=== PATIENT | female | born 1990 | race Caucasian/White ===

== ENCOUNTER 2023-06-06 10:18 | Outpatient (CLI) | payer BC, SELFPAY | END 2023-06-06 10:19 | disposition home or self-care (01) | PROVIDERS: PCP Family Medicine; Visit Provider Family Medicine | DX: Z00.00 Encounter for general adult medical examination without abnormal findings (principal); R53.83 Other fatigue; F41.9 Anxiety disorder, unspecified; Z13.6 Encounter for screening for cardiovascular disorders | CPT/HCPCS: 80053; 80061; 84443 ==

== ENCOUNTER 2023-08-09 10:30 | Outpatient (CLI) | payer BC, SELFPAY | END 2023-08-09 10:31 | disposition home or self-care (01) | PROVIDERS: PCP Family Medicine; Visit Provider Family Medicine | DX: E78.2 Mixed hyperlipidemia (principal); R79.89 Other specified abnormal findings of blood chemistry | CPT/HCPCS: 80061; 80076 ==

== ENCOUNTER 2024-02-15 16:05 | Outpatient (CLI) | payer BC, SELFPAY ==
[2024-02-15 23:12] LABS: Chlamydia DNA Amplified* NOT DETECTED (No Detected); GC DNA Amplified* NOT DETECTED (No Detected)
== END 2024-02-15 16:06 | disposition home or self-care (01) ==
LOC: LKVREF 16:07
PROVIDERS: PCP Family Medicine; Visit Provider Nurse Practitioner Family
DX: R14.0 Abdominal distension (gaseous) (principal); Z11.3 Encounter for screening for infections with a predominantly sexual mode of transmission
CPT/HCPCS: 87491; 87591

== ENCOUNTER 2024-04-03 13:48 | Outpatient (CLI) | payer BC, SELFPAY | END 2024-04-03 13:49 | disposition home or self-care (01) | LOC: LAB 13:49 | PROVIDERS: PCP Family Medicine; Visit Provider Obstetrics & Gynecology | DX: R10.2 Pelvic and perineal pain (principal) | CPT/HCPCS: 81513; 87086; 87481; 87661 ==

== ENCOUNTER 2024-05-15 09:31 | Outpatient (CLI) | payer BC, SELFPAY ==
--- NOTE | 2024-05-15 09:45 | CRLHL7_ITS ---
For Patients: As a result of the Century Cures Act, medical imaging exams and procedure reports are released immediately into your electronic medical record. You may view this report before your referring provider. If you have questions, please contact your health care provider. INDICATION: First trimester scan, establish dates. COMPARISON: None. TECHNIQUE: Real-time hutchins-scale imaging of the pelvis was performed. FINDINGS: Sonographic imaging demonstrates a single living intrauterine gestation. The embryo demonstrates a regular cardiac rate measuring 171 beats per minute. The embryo`s crown-rump length measurement of 1.9 cm corresponds to a gestational age of 8 weeks 3 days with a sonographic due date of 12/22/2024. There is a normal-appearing yolk sac. Abdominal wall is somewhat prominent. The gestational sac has a normal appearance. There is no evidence of a perigestational hemorrhage. The amount of fluid within the sac appears appropriate for gestational age. The cervix is closed. The myometrium appears normal. Simple anechoic right ovarian cyst measures 1.7 x 1.3 x 1.5 cm. Corpus luteal cyst right ovary also noted. Left ovary not visualized. There are no suspicious fluid collections noted in the cul-de-sac. IMPRESSION: Single living intrauterine with sonographic gestational age 8 weeks 3 days and a sonographic due date of 12/22/2024. Possible contour change of the abdominal wall, recommend short-term follow-up for further evaluation. Dictated by Himanshu Lewis MD @ 05/16/2024 11:23:56 AM (Electronically Signed)
== END 2024-05-15 09:32 | disposition home or self-care (01) ==
LOC: US 09:33
PROVIDERS: PCP Family Medicine; Visit Provider Physician Assistant
DX: Z34.91 Encounter for supervision of normal pregnancy, unspecified, first trimester (principal); Z3A.08 8 weeks gestation of pregnancy
CPT/HCPCS: 76817; 82565; 82570; 84156; 84450; 84460; 84520; 86592; 86703; 86704; 86706; 86762; 86787; 86803; 86850; 86900; 86901; 87086; 87340; 87491; 87591

== ENCOUNTER 2024-05-15 11:20 | Outpatient (CLI) | payer BC, SELFPAY ==
[2024-05-15 17:28] LABS: Chlamydia DNA Amplified* NOT DETECTED (No Detected); GC DNA Amplified* NOT DETECTED (No Detected)
== END 2024-05-15 11:21 | disposition home or self-care (01) ==
PROVIDERS: PCP Family Medicine; Visit Provider Physician Assistant
DX: Z34.91 Encounter for supervision of normal pregnancy, unspecified, first trimester (principal); N89.8 Other specified noninflammatory disorders of vagina; Z3A.09 9 weeks gestation of pregnancy
CPT/HCPCS: 82565; 82570; 84156; 84450; 84460; 84520; 86592; 86703; 86704; 86706; 86762; 86787; 86803; 86850; 86900; 86901; 87086; 87340; 87491; 87591

== ENCOUNTER 2024-06-12 07:10 | Outpatient (CLI) | payer BC, SELFPAY ==
--- NOTE | 2024-06-12 07:15 | CRLHL7_ITS ---
For Patients: As a result of the Century Cures Act, medical imaging exams and procedure reports are released immediately into your electronic medical record. You may view this report before your referring provider. If you have questions, please contact your health care provider. INDICATION: FOLLOW UP ABDOMINAL WALL CONTOUR COMPARISON: 05/15/2024 TECHNIQUE: Real-time hutchins-scale imaging of the pelvis was performed. FINDINGS: Sonographic imaging demonstrates a single living intrauterine gestation. The embryo demonstrates a regular cardiac rate measuring 152 beats per minute. The embryo`s crown-rump length measurement of 6.6 cm corresponds to a gestational age of 12 weeks 6 days with a sonographic due date of 12/19/2024. Abdominal wall is normal. Normal ovaries. IMPRESSION: Normal abdominal wall. Sonographic gestational age 12 weeks 6 days and sonographic due date of 12/19/2024. Dictated by Himanshu Lewis MD @ 06/13/2024 1:30:48 PM (Electronically Signed)
== END 2024-06-12 07:11 | disposition home or self-care (01) ==
LOC: US 07:10
PROVIDERS: PCP Family Medicine; Visit Provider Physician Assistant
DX: O28.3 Abnormal ultrasonic finding on antenatal screening of mother (principal); Z3A.12 12 weeks gestation of pregnancy
CPT/HCPCS: 76816

== ENCOUNTER 2024-06-13 14:00 | Outpatient (CLI) | payer BC, SELFPAY | END 2024-06-13 14:01 | disposition home or self-care (01) | PROVIDERS: PCP Family Medicine; Referring Provider Family Medicine; Visit Provider Physician Assistant | DX: Z34.91 Encounter for supervision of normal pregnancy, unspecified, first trimester (principal); N89.8 Other specified noninflammatory disorders of vagina | CPT/HCPCS: 82570; 84156 ==

== ENCOUNTER 2024-07-22 08:34 | Outpatient (CLI) | payer BC, SELFPAY ==
--- OUTSIDE RECORDS SUMMARY | 2024-07-22 08:35 | XMS_ITS | Clinical Summary ---
Author Organization [facility] Address [address] [place] [address] Care Team Providers Care Student Specialist Name Role Phone Siri Gaines DO Primary Care Provider [phone] Source Comments You are receiving this document as you are listed as the primary care provider,follow-up provider, or the patient has been referred to you for consultation.This is in compliance with the Medicare and[facility] EHR Incentive Program,which states Providers who transition their patient to another setting of careor provider of care or refers their patient to another provider of care shouldprovide summary care record for each transition of care or referral. [facility] Allerg[facility] No known active allergies Medications Medication Sig Dispensed Refills Start Date End Date Status Docusate Sodium (DSS) 100 MG Active cholecalciferol (VITAMIND3) 50 MCG (1999) tablet Daily Active sertraline (ZOLOFT) 100 MG tabletIndications:Gene ralized anxiety disorder (HRC) Take 1 Tablet (100 mg) by mouth daily. 90 Tablet 3 02/24/2022 Active hydrOXYzine HCl (ATARAX) 25 MG tabletIndications:Gene ralized anxiety disorder (HRC) Take 1 Tablet (25 mg) by mouth at bedtime as needed for Anxiety. 90 Tablet 3 02/24/2022 Active spironolactone (ALDACTONE) 100 MG tabletIndications:Acne , unspecified acne type Take 1 Tablet (100 mg) by mouth daily. 90 Tablet 3 06/23/2022 Active SPRINTEC 28 0.25-35 MG-MCG tabletIndications:Enco unter for contraceptive management, unspecified type Take 1 tablet by mouth once daily 90 Tablet 1 02/08/2023 Active Active Problems Problem Noted Date Diagnosed Date Hypersomnolence 06/23/2022 Generalized anxiety disorder 07/29/2014 Resolved Problems Problem Noted Date Diagnosed Date Resolved Date Nexplanon in place 07/31/2014 9 Overview (07/31/2016): Removed and replaced 07/31/16 To be removed by 07/31/16 Lot# [id number] Varicella 07/17/2007 07/29/2014 Overview (06/13/2017): LW Onset: [id number] ; Varicella Zoster Other acne 07/13/2007 07/29/2014 Overview (06/13/2017): Acne Vulgaris Immunizations Name Administration Dates Next Due 4vHPV (Gardasil) 01/29/2008,09/23/2007, 7 9vHPV (Gardasil 9) 01/29/2008,09/21/2007, 007 DTP 10/04/1994, 2,03/31/1991,1990,1990 Fluzone Qiv Multidose Vial 0 .25 (6-35 Mos) 07/28/2021,07/17/2019,07/18/2018,2016 HepA Adult (19+ yrs) 11/23/2010,05/11/2010 HepB Ped/Adol (0-18 yrs) 08/27/2003,04/02/2003,0 01/29/2003 Hib (ActHIB) 01/14/1992, 1,01/28/1991,1990 Influenza IIV4 (Quadrivalent ) 0.5mL ([id number]) 09/06/2016 MCV4 (Menactra) 05/11/2010 MMR 04/02/2003,01/14/1992 Pfizer Monovalent 12+ Purple Top 05/31/2021,04/22 Polio, Unspecified Formulation 4,01/14/1992,01/28/1991,1990 TDAP (ADACEL) 11/23/2010 Td 08/27/2003 Tdap 01/07/2021 Family History Medical History Relation Name Comments Multiple Sclerosis Maternal Grandmother Other[Other] Sister PCOS Relation Name Status Comments Father Alive Mother Alive Brother 1 Alive Brother 2 Alive Maternal Grandmother Alive Sister Alive Social History Tobacco Use Types Packs/Day Years Used Date Smoking Tobacco: Never Smokeless Tobacco: Never Alcohol Use Standard Drinks/Week Comments Yes 2 (1 standard drink = 0.6 oz pur e alcohol) PHQ-2 Answer Date Recorded PHQ-2 Score 0 02/24/2022 Sex and Gender Information Value Date Recorded Sex Assigned at Not on file Gender Identity Not on file Sexual Orientation Not on file Last Filed Vital Signs Vital Sign Reading Time Taken Comments Blood Pressure 122/83 06/23/2022 2:23 PM CDT Pulse 75 06/23/2022 2:23 PM CDT Temperature 36.8 ??C (98.2 ??F) 08/03/2020 2 :31 PM CDT pt reported Respiratory Rate 16 10/01/2009 7:59 AM POLE SHAVER Oxygen Saturation - - Inhaled Oxygen Concentration - - Weight 71.1 kg (156 lb 11.2 oz) 06/23/2022 2:23 PM CDT Height 157.4 cm (5' 1.97) 02/24/2022 7 :29 AM CDT Body Mass Index 28.69 02/24/2022 7:29 AM CDT Plan of Treatment Health Maintenance Due Date Last Done Comments Cervical Cancer Screening 03/31/20222018, 02/17/2016, 12/03/2012, Additional history exists Adult Preventive Visit 02/25/2024 , 05/06/2020, 03/31/2019 COVID-19 Vaccine ( season) 2024 05/31/2021, 05/10/2021 Influenza (#1) 2024 07/28/2021, 06/23, 07/18/2018, Additional history exists DTaP/Tdap/Td (8 - Tdap) 01/07/2031 01/08/20 21, 11/23/2010, 08/27/2003, Additional history exists Zoster/Shingles (1 of 2) 2040 Hib Completed 01/14/1992, 03/22, 01/28/1991, Additional history exists IPV (Polio) Completed 10/04/1994, 12/21, 01/28/1991, Additional history exists HepB Completed 08/27/2003, 03/22, 01/29/2003 HPV Vaccine Completed 01/29/2008, 04/0 06/2008, 09/23/2007, Additional history exists MCV4 Aged Out 05/11/2010 No longer eligi ble based on patient's age to complete this topic HepA Aged Out 11/23/2010, 05/11/2010 No lo nger eligible based on patient's age to complete this topic HIV Screening (Preventive Services) Completed 10/12/2021 (Completed) Hep C Screening (Preventive Services) Completed 06/23/2022 (Completed) Pneumococcal Aged Out No longer eligi ble based on patient's age to complete this topic Procedures Procedure Name Priority Date/Time Associated Diagnosis Comments PAP TEST Routine 03/31/2019 1:05 PM CDT Annual physical exam from Last 3 Months or Most Recently Relevant to Health Maintenance Results * (ABNORMAL) PAP Test (03/31/2019 1:05 PM CDT) Case Report Pap ? Case: [id number] ? Authorizing Provider: ??Siri Gaines, DO ? Collected: ? 03/31/2019 01:05 PM ? [facility] Received: ?03/31/2019 03:26 PM ? First Screen: ?Kinza Rivas, CT ? (ASCP) ? Pathologist: ? Sharon Alejandre MD ? Specimen: ?Pap Test, Routine, Cervix/Endocerv ix ? 04/02/2019 2:13 PM CDT [facility] Pap Specimen Adequacy Satisfactory for evaluation, endocervical/tr ansformation zone component present. 04/02/2019 2:13 PM CDT [facility] Pap Interpretation Atypical squamous cells of undetermined significance (ASC-US).(A) 04/02/2019 2:13 PM CDT [facility] Gross Description The specimen is received in SurePath fixative and properly labeled. 1 Pap-stained SurePath slide is prepared. 04/02/2019 2:13 PM CDT [facility] Pap Disclaimer The Pap test is a screening test designed to aid in the detection of cervical cancer and its precursor lesions. It is not a diagnostic procedure and should not be used as the sole means of detecting cervical cancer. Both false-positive and false-negative reports may occur. 04/02/2019 2:13 PM CDT [facility] Embedded Images 2:13 PM CDT [facility] Other Specimen Type ENTIRE ENDOCERVIX / Unknown 03/31/2019 1:05 PM CDT 03/31/2019 3:26 PM CDT Comment:LMP: No LMP recorded . Siri Gaines DO LAB PATHOLOGY [facility] [address] [place] [address], [facility] from Last 3 Months or Most Recently Relevant to Health Maintenance Care Teams Student Specialist Relationship Specialty Start Date End Date Siri Gaines DO [address] [place], [place] [address] PCP - General 07/27/14
[2024-07-22 12:26] LABS: Bacterial Vaginosis* Negative (Negative); Candida glab/krus NOT DETECTED (No Detected); Candida species NOT DETECTED (No Detected); Trichomonas vaginalis NOT DETECTED (No Detected)
== END 2024-07-22 08:35 | disposition home or self-care (01) ==
LOC: NFLDREF 08:34
PROVIDERS: PCP Family Medicine; Visit Provider Advanced Practice Midwife
DX: N89.8 Other specified noninflammatory disorders of vagina (principal)
CPT/HCPCS: 81513; 87481; 87661

== ENCOUNTER 2024-08-26 05:30 | Outpatient (CLI) | payer BC, SELFPAY ==
--- OUTSIDE RECORDS SUMMARY | 2024-08-28 10:57 | XMS_ITS | Clinical Summary ---
Author Organization [place] Address [address] [place] [address] Care Team Providers Care Master Steam Yacht Name Role Phone Kymberly Mustafa MD Primary Care Provider + Encounters Date Type Department Care Team Description 08/22/2024 10:45 AM CDT Office Visit [facility] [place] [address] [place] [phone] Lloyd Feldman MD Hx of preeclampsia, prior , currently , second trimester (Primary Dx); Suspected anomaly not found 08/22/2024 10:12 AM CDT - 08/22/2024 11:59 PM CDT Hospital Encounter [facility] [address] [place] [address] Lloyd Feldman MD Encounter for follow-up ultrasound of anatomy Discharge Disposition: Home or Self Care 08/22/2024 Travel 08/01/2024 11:45 AM CDT Office Visit [facility] [address] [place] [phone] Jenny Bill MD Encounter for follow-up ultrasound of anatomy (Primary Dx); History of gestational hypertension; History of cholestasis during 08/01/2024 10:58 AM CDT - 08/01/2024 11:59 PM CDT Hospital Encounter [facility] [address] [place] [phone] Jenny Bill MD History of gestational hypertension Discharge Disposition: Home or Self Care 08/01/2024 Travel 07/29/2024 Travel 07/23/2024 PRE VISIT [facility] [place] [address] [facility] [address] [place] [phone] Brittanie Davis RN Ultrasound (L2- Cholestasis in previous ); Consult (History of Cholestasis in previous ) from Last 3 Months Social History Tobacco Use Types Packs/Day Years Used Date Smoking Tobacco: Never Assessed Adolescent Education Answer Date Record ed Getting School Help Needed Not on file 07/14 Estimated Date of Delivery Comme nts Yes 12/15/2024 Based on last me nstrual period of 03/10/2024 Sex and Gender Information Value Date Recorded Sex Assigned at Female 07/29/2024 8:27 AM CDT Legal Sex Female 8:03 AM CDT Gender Identity Female 07/29/2024 8:27 AM CDT Sexual Orientation Choose not to disclose 2023 8:27 AM CDT Last Filed Vital Signs Vital Sign Reading Time Taken Comments Blood Pressure 98/66 08/01/2024 12:22 PM CDT Pulse 64 08/01/2024 12:22 PM CDT Temperature - - Respiratory Rate - - Oxygen Saturation 99% 08/01/2024 12:22 PM CDT Inhaled Oxygen Concentration - - Weight - - Height - - Body Mass Index - - Plan of Treatment Health Maintenance Due Date Last Done Comments ADVANCE CARE PLANNING 1990 ANNUAL REVIEW OF HM ORDERS 1990 HIV SCREENING 2005 HEPATITIS C SCREENING 2008 PAP 03/31/2022 03/31/2019 YEARLY PREVENTIVE VISIT 02/24/2023 02/25/20 22, 05/06/2020, 03/31/2019 PHQ-2 (once per calendar year) 2023 MATERNAL SCREENING DISCUSSION 05/19/2024 COVID-19 Vaccine ( season) 2024 05/31/2021, 05/10/2021 INFLUENZA VACCINE (#1) 2024 3, 07/28/2021, 07/27/2020, Additional history exists OBGCT (OB) 08/25/2024 RSV VACCINE (1 - Risk 1-dose series) 10/20/2024 DTAP/TDAP/TD IMMUNIZATION (8 - Td or Tdap) 01/07/2031 01/07/2021, 11/23/2010, 08/27/2003, Additional history exists HEPATITIS B IMMUNIZATION Completed 003, 04/02/2003, 01/29/2003 HPV IMMUNIZATION Completed 01/29/2008, 12/2006, 09/21/2007, Additional history exists MENINGITIS IMMUNIZATION Aged Out 05/11/2010 No l onger eligible based on patient's age to complete this topic Pneumococcal Vaccine: Pediatrics (0 to 5 Years) and At-Risk Patients (6 to 64 Years) Aged Out No longer eligible based on patient's age to complete this topic RSV MONOCLONAL ANTIBODY Aged Out No l onger eligible based on patient's age to complete this topic Procedures Procedure Name Priority Date/Time Associated Diagnosis Comments [facility] US COMPREHENSIVE SINGLE F/U Routine 08/22/2024 10:43 AM CDT Encounter for follow-up ultrasound of anatomy [facility] US COMPREHENSIVE SINGLE Routine 08/01/2024 12:22 PM CDT History of gestational hypertension from Last 3 Months Results * [facility] US Comprehensive Single F/U (08/22/2024 10:43 AM CDT) Anatomical Region Laterality Modality Ultrasound 08/22/2024 10:1 3 AM CDT Impressions 08/22/2024 2:42 PM CDT IMPRESSION ----- 1) David intrauterine at 22w 4d gestational age. 2) None of the anomalies commonly detected by ultrasound were evident in the anatomic survey described above. 3) Growth parameters and estimated weight were consistent with an appropriate for gestation age pattern of growth. 4) The amniotic fluid volume appeared normal. Narrative 08/22/2024 2:42 PM CDT ?Comp Follow Up ----- Pat. Name: TARUN CORREA ? Study Date: ??08/22/2024 10:13am Pat. NO: ??[id number] ?Referring ??MD: JANUARY ROSELYN Site: ? Java Performance Engineer: Aarti Marinelli RDMS : ??1990 ?Age: ?? 33 ----- INDICATION ----- Reevaluate growth and suboptimal anatomy METHOD ----- Transabdominal ultrasound examination. View: Sufficient ----- David . Number of fetuses: 1 DATING ----- ? Date ?Details ?Gest. age ?TREY LMP ?03/10/2024 ? 23 w + 4 d ? 12/15/2024 Previous U/S ?05/15/2024 ?GA, GA 8 w + 3 d ? 22 w + 4 d ? 12/22/2024 U/S ? 08/22/2024 ? based upon AC, BPD, Femur, HC ?22 w + 6 d ? 12/20/2024 Assigned dating ?based on ultrasound (GA), selected on 08/22/2024 ?22 w + 4 d ? 12/22/2024 GENERAL EVALUATION ----- Cardiac activity present. FHR 146 bpm. movements: present. Presentation: Variable Placenta: Posterior Umbilical cord: 3 vessel cord Amniotic fluid: Amount of AF: normal. MVP 5.5 cm BIOMETRY ----- BPD ? 55.1 ?mm ? 22w 6d ?Hadlock OFD ? 75.2 ?mm ? 23w 0d ?Nicolaides HC ? 207.9 ?mm ? 22w 6d ? Hadlock Cerebellum tr ?23.1 ?mm ? 21w 4d ? Nicolaides AC ? 182.4 ?mm ? 23w 1d ?58% ?Hadlock Femur ?39.2 ?mm ? 22w 4d ? Hadlock Weight Calculation: EFW ?541 ? g ? 57% ?Hadlock EFW (lb,oz) ?1 lb 3 ?oz EFW by ? Hadlock ([id number]) Head / Face / Neck Biometry: Edging Supervisor ?3.5 ? mm CM ? 3.2 ? mm ANATOMY ----- The following structures appear normal: Head / Neck ? Cranium. Head size. Head shape. Lateral ventricles. Midline falx. Cavum septi pellucidi. Cerebellum. Cisterna magna. Thalami. Face ? Lips. Profile. Nose. Heart / Thorax ?4-chamber view. RVOT view. LVOT view. 8-ywemyv-izelfqo view. ? Diaphragm. Abdomen ? Stomach. Kidneys. Bladder. The following structures were documented previously: Spine ?Cervical spine. Thoracic spine. Lumbar spine. Sacral spine. sex: male. MATERNAL STRUCTURES ----- Cervix ?Visualized ? Appearance: Appears Closed ? Approach - Transabdominal: Cervical length 44.3 mm Right Ovary ?Not examined ? Cyst(s) Size 11 mm x 13 mm x 13 mm. Mean 12.3 mm. Vol 0.973 cm? ? ?. Simple cyst Left Ovary ?Not examined RECOMMENDATION ----- We discussed the findings on today's ultrasound with the patient. The anatomy that was suboptimally seen at the prior ultrasound appeared within normal limits today. Recommend further ultrasound studies as additional clinical indications arise. Return to primary provider for continued care. Thank you for the opportunity to participate in the care of this patient. If you have questions regarding today's evaluation or if we can be of further service, please contact the [facility]. anomalies may be present but not detected Procedure Note Lloyd Feldman MD - 08/22/2024 Comp Follow Up ----- Pat. Name: TARUN CORREA Study Date: 08/22/2024 10:13am Pat. NO: [id number] Referring MD: MIMI DEMPSEY Site: Java Performance Engineer: Aarti Marinelli RDMS DOB: 1990 Age: 33 ----- INDICATION ----- Reevaluate growth and suboptimal anatomy METHOD ----- Transabdominal ultrasound examination. View: Sufficient ----- David . Number of fetuses: 1 DATING ----- DateDetailsGest. age TREY LMP w + 4 d 12/15/2024 Previous U/S 05/15/2024 GA, GA8 w + 3 d22 w + 4 d 12/22/2024 U/S 08/22/2024ased upon AC, BPD, Femur, HC22 w + 6 d 12/20/2024 Assigned dating based on ultrasound (), selected on w + 4 d 12/22/2024 GENERAL EVALUATION ----- Cardiac activity present. FHR 146 bpm. movements: present.Presentation: Variable Placenta: Posterior Umbilical cord: 3 vessel cord Amniotic fluid: Amount of AF: normal. MVP 5.5 cm BIOMETRY ----- BPD 55.1mm 22w 6dHadlock OFD 75.2mm 23w 0dNicolaides HC 207.9mm 22w 6dHadlock Cerebellum tr 23.1mm 21w 4dNicolaides AC 182.4mm 23w 1d 58%Hadlock Femur 39.2mm 22w 4dHadlock Weight Calculation: EFW 541g 57%Hadlock EFW (lb,oz) 1 lb 3oz EFW by Juan([id number]) Head / Face / Neck Biometry: Edging Supervisor 3.5mm CM 3.2mm ANATOMY ----- The following structures appear normal: Head / Neck Cranium. Head size. Head shape.Lateral ventricles. Midline falx. Cavum septi pellucidi. Cerebellum.Cisterna magna. Thalami. Face Lips. Profile. Nose. Heart / Thorax 4-chamber view. RVOT view. LVOT view.9-kmckqf-yiuoryf view. Diaphragm. Abdomen Stomach. Kidneys. Bladder. The following structures were documented previously: Spine Cervical spine. Thoracic spine.Lumbar spine. Sacral spine. sex: male. MATERNAL STRUCTURES ----- Cervix Visualized Appearance: Appears Closed Approach - Transabdominal:Cervical length 44.3 mm Right Ovary Not examined Cyst(s) Size 11 mm x 13 mm x 13mm. Mean 12.3 mm. Vol 0.973 cm? ? ?. Simple cyst Left Ovary Not examined RECOMMENDATION ----- We discussed the findings on today's ultrasound with the patient. The anatomy that was suboptimally seen at the prior ultrasoundappeared within normal limits today. Recommend further ultrasound studiesas additional clinical indications arise. Return to primary provider for continued care. Thank you for the opportunity to participate in the care of this patient.If you have questions regarding today's evaluation or if we can be offurther service, please contact the [facility]. anomalies may be present but not detected IMPRESSION ----- 1) David intrauterine at 22w 4d gestational age. 2) None of the anomalies commonly detected by ultrasound were evident inthe anatomic survey described above. 3) Growth parameters and estimated weight were consistent with anappropriate for gestation age pattern of growth. 4) The amniotic fluid volume appeared normal. us Jenny Bill MD Rob [facility] US ORDERABLES Edited Re sult - Final * [facility] US Comprehensive Single (08/01/2024 12:22 PM CDT) Anatomical Region Laterality Modality Ultrasound 08/01/2024 11:0 5 AM CDT Impressions 08/01/2024 4:57 PM CDT IMPRESSION ----- 1. David at 19w 4d gestational age. 2. No anomalies commonly detected by ultrasound were identified in the detailed anatomic survey within the limits of ultrasound, however some views were suboptimal, as described above. 3. Growth parameters and estimated weight were consistent with gestational age predicted by assigned TREY. 4. The amniotic fluid volume appeared normal. 5. On transabdominal imaging the cervix appeared long and closed. Narrative 08/01/2024 4:57 PM CDT ?Comprehensive ----- Pat. Name: TARUN CORREA ? Study Date: ??08/01/2024 11:05am Pat. NO: ??[id number] ?Referring ??MD: MIMI DEMPSEY Site: ? Java Performance Engineer: Paula Redmond RDMS : ??1990 ?Age: ?? 33 ----- INDICATION ----- History of preeclampsia. Declined screening. METHOD ----- Transabdominal ultrasound examination. View: Sufficient ----- David . Number of fetuses: 1 DATING ----- ? Date ?Details ?Gest. age ?TREY LMP ?03/10/2024 ? 20 w + 4 d ? 12/15/2024 Previous U/S ?05/15/2024 ?GA, GA 8 w + 3 d ? 19 w + 4 d ? 12/22/2024 U/S ? 08/01/2024 ? based upon AC, BPD, Femur, HC ? 19 w + 4 d ? 12/22/2024 Assigned dating ?based on ultrasound (GA), selected on 08/01/2024 ?19 w + 4 d ? 12/22/2024 GENERAL EVALUATION ----- Cardiac activity present. FHR 146 bpm. movements: present. Presentation: breech Placenta: No Previa, > 2 cm from internal os, Posterior Umbilical cord: 3 vessel cord Amniotic fluid: Amount of AF: normal. MVP 5.8 cm BIOMETRY ----- BPD ? 46.4 ?mm ? 20w 0d ?Hadlock OFD ? 61.2 ?mm ? 19w 6d ?Nicolaides HC ? 172.4 ?mm ? 19w 6d ? Hadlock Cerebellum tr ?20.7 ?mm ? 19w 5d ? Nicolaides Nuchal fold ?3.9 ? mm AC ? 137.6 ?mm ? 19w 1d ?32% ?Hadlock Femur ?30.3 ?mm ? 19w 3d ? Hadlock Humerus ? 30.5 ? mm ?20w 0d ?Lizette Weight Calculation: EFW ?287 ? g ? 32% ?Hadlock EFW (lb,oz) ?0 lb 10 ? oz EFW by ? Hadlock ([id number]-FL) Head / Face / Neck Biometry: Edging Supervisor ?5.6 ? mm CM ? 4.6 ? mm Nasal bone ? 5.5 ?mm ANATOMY ----- The following structures appear normal: Head / Neck ? Cranium. Head size. Head shape. Lateral ventricles. Choroid plexus. Midline falx. Cavum septi pellucidi. Cerebellum. Cisterna magna. ? Parenchyma. Thalami. Vermis. ? Neck. Nuchal fold. Face ? Lips. Profile. Nose. Maxilla. Mandible. Orbits. Lens. Heart / Thorax ?4-chamber view. RVOT view. LVOT view. 3-vessel view. 4-nndpxe-ztkcmzp view. Situs. Aortic arch view. Bicaval view. Ductal arch view. Superior ? vena cava. Inferior vena cava. Cardiac position. Cardiac size. Cardiac rhythm. ? Right lung. Left lung. Diaphragm. Abdomen ? Abdom. wall. Cord insertion. Kidneys. Bladder. Liver. Bowel. Genitals. Spine ?Cervical spine. Thoracic spine. Lumbar spine. Sacral spine. Extremities / Skeleton ?Arms. Right arm. Right hand. Left arm. Left hand. Legs. Right leg. Right foot. Left leg. Left foot. The following structures could not be adequately visualized: Abdomen ? Stomach. sex: male. MATERNAL STRUCTURES ----- Cervix ?Visualized ? Appearance: Appears Closed ? Approach - Transabdominal: Cervical length 40.5 mm Right Ovary ?Visualized ? Cyst(s) Size 19 mm x 17 mm x 16 mm. Mean 17.3 mm. Vol 2.706 cm? ? ?. paraovarian simple cyst Left Ovary ?Visualized RECOMMENDATION ----- Thank-you for referring your patient for ultrasound assessment. I discussed the findings on today's ultrasound with the patient. I reviewed the limitations of ultrasound both in detecting aneuploidy and structural abnormalities. Ultrasound, when views completed, can routinely detect 80-90% of structural abnormalities. She has not had genetic screening this , genetic screening/testing options were reviewed which she is not interested in today. She was seen for a consultation today given prior obstetric history. Please refer to the consult note for further details. Follow-up is scheduled here in three weeks to reassess anatomy that was suboptimally seen today. Return to primary provider for continued care. If you have questions regarding today's evaluation or if we can be of further service, please contact the [facility]. anomalies may be present but not detected Procedure Note Jenny Bill MD - 08/01/2024 Comprehensive ----- Pat. Name: TARUN CORREA Study Date: 08/01/2024 11:05am Pat. NO: [id number] Referring MD: MIMI DEMPSEY Site: Java Performance Engineer: Paula Redmond RDMS : 1990 Age: 33 ----- INDICATION ----- History of preeclampsia. Declined screening. METHOD ----- Transabdominal ultrasound examination. View: Sufficient ----- David . Number of fetuses: 1 DATING ----- DateDetailsGest. age TREY LMP w + 4 d 12/15/2024 Previous U/S 05/15/2024 GA, GA8 w + 3 d19 w + 4 d 12/22/2024 U/S 08/01/2024ased upon AC, BPD, Femur, HC19 w + 4 d 12/22/2024 Assigned dating based on ultrasound (GA), selected on08/01/2024 19w + 4 d 12/22/2024 GENERAL EVALUATION ----- Cardiac activity present. FHR 146 bpm. movements: present.Presentation: breech Placenta: No Previa, > 2 cm from internal os, Posterior Umbilical cord: 3 vessel cord Amniotic fluid: Amount of AF: normal. MVP 5.8 cm BIOMETRY ----- BPD 46.4mm 20w 0dHadlock OFD 61.2mm 19w 6dNicolaides HC 172.4mm 19w 6dHadlock Cerebellum tr 20.7mm 19w 5dNicolaides Nuchal fold 3.9mm AC 137.6mm 19w 1d 32%Hadlock Femur 30.3mm 19w 3dHadlock Humerus 30.5mm 20w 0dJeanty Weight Calculation: EFW 287g 32%Hadlock EFW (lb,oz) 0 lb 10oz EFW by Hadlock([id number]) Head / Face / Neck Biometry: Edging Supervisor 5.6mm CM 4.6mm Nasal bone 5.5mm ANATOMY ----- The following structures appear normal: Head / Neck Cranium. Head size. Head shape.Lateral ventricles. Choroid plexus. Midline falx. Cavum septi pellucidi.Cerebellum. Cisterna magna. Parenchyma. Thalami. Vermis. Neck. Nuchal fold. Face Lips. Profile. Nose. Maxilla.Mandible. Orbits. Lens. Heart / Thorax 4-chamber view. RVOT view. LVOT view.3-vessel view. 5-gibohw-ndrebxy view. Situs. Aortic arch view. Bicavalview. Ductal arch view. Superior vena cava. Inferior vena cava.Cardiac position. Cardiac size. Cardiac rhythm. Right lung. Left lung.Diaphragm. Abdomen Abdom. wall. Cord insertion. Kidneys.Bladder. Liver. Bowel. Genitals. Spine Cervical spine. Thoracic spine.Lumbar spine. Sacral spine. Extremities / Skeleton Arms. Right arm. Right hand. Left arm.Left hand. Legs. Right leg. Right foot. Left leg. Left foot. The following structures could not be adequately visualized: Abdomen Stomach. sex: male. MATERNAL STRUCTURES ----- Cervix Visualized Appearance: Appears Closed Approach - Transabdominal:Cervical length 40.5 mm Right Ovary Visualized Cyst(s) Size 19 mm x 17 mm x 16mm. Mean 17.3 mm. Vol 2.706 cm? ? ?. paraovarian simple cyst Left Ovary Visualized RECOMMENDATION ----- Thank-you for referring your patient for ultrasound assessment. I discussed the findings on today's ultrasound with the patient. Ireviewed the limitations of ultrasound both in detecting aneuploidy andstructural abnormalities. Ultrasound, when views completed, can routinely detect 80-90% of structuralabnormalities. She has not had genetic screening this , geneticscreening/testing options were reviewed which she is not interested in today. She was seen for a consultation today given prior obstetric history.Please refer to the consult note for further details. Follow-up is scheduled here in three weeks to reassess anatomy that wassuboptimally seen today. Return to primary provider for continued care. If you have questions regarding today's evaluation or if we can be offurther service, please contact the [facility]. anomalies may be present but not detected IMPRESSION ----- 1. David at 19w 4d gestational age. 2. No anomalies commonly detected by ultrasound were identified inthe detailed anatomic survey within the limits of prenatalultrasound, however some views were suboptimal, as described above. 3. Growth parameters and estimated weight were consistent withgestational age predicted by assigned TREY. 4. The amniotic fluid volume appeared normal. 5. On transabdominal imaging the cervix appeared long and closed. us Joelle River MD [facility] ORDERABLES Edited Res ult - Final from Last 3 Months Insurance [facility] Care Teams Master [employer] Relationship Specialty Start Date End Date Kymberly Mustafa MD [facility] & [address] [address] PCP - General Family Medicine 05/22/24
--- OUTSIDE RECORDS SUMMARY | 2024-08-28 10:57 | XMS_ITS | Encounter Summary ---
Author Organization [place] Address [facility] [place] [address] Care Team Providers Care Network Account Manager Name Role Phone Kymberly Mustafa MD Primary Care Provider + Encounter Details Date Type Department Care Team (Latest Contact Info) Description 08/22/2024 Travel Social History Tobacco Use Types Packs/Day Years [...] not to disclose 2023 8:27 AM CDT documented as of this encounter Plan of Treatment Not on file documented as of this encounter Visit Diagnoses Not on filedocumented in this encounter Care Teams Network Account Manager Relationship Specialty Start Date End Date Kymberly Mustafa MD [facility] & [address] [address] PCP - General Family Medicine 05/22/24 documented as of this encounter
--- OUTSIDE RECORDS SUMMARY | 2024-08-28 10:57 | XMS_ITS | Encounter Summary ---
Author Organization [place] Address [address] [place] [address] Care Team Providers Care Big Data Lead Name Role Phone Kymberly Mustafa MD Primary Care Provider + Reason for Visit * Reason Comments Ultrasound RL2-suboptimal anato my Encounter Details Date Type Department Care Team (Late st Contact Info) Description 08/22/2024 10:45 AM CDT Office Visit [facility] [place] [address] [facility] [address] [facility] [address] [place] [address] Lloyd Feldman MD [address] [place] [address] Hx of preeclampsia, prior , currently , second trimester (Primary Dx); Suspected anomaly not found Social History Tobacco Use Types Packs/Day Years [...] AM CDT documented as of this encounter Progress Notes * Lloyd Feldman MD - 08/22/2024 10:45 AM CDT Please see Imaging tab under Chart Review for details of today's visit. Lloyd Feldman documented in this encounter Nursing Notes * Melia Mckinley, RN - 08/22/2024 10:45 AM CDT Patient reports good movement, denies contractions, leaking of fluid, or bleeding. ALLAN NI MD, see their note in Epic. documented in this encounter Plan of Treatment Not on file documented as of this encounter Visit Diagnoses Diagnosis Hx of preeclampsia, prior , currently , second trimester- Primary Suspected anomaly not found documented in this encounter Care Teams Big Data Lead Relationship Specialty Start Date End Date Kymberly Mustafa MD [facility] & [address] [address] PCP - General Family Medicine 05/22/24 documented as of this encounter
--- OUTSIDE RECORDS SUMMARY | 2024-08-28 10:57 | XMS_ITS | Referral Summary ---
Author Organization [facility] Address [address] [place] [address] Care Team Providers Care Clipping Marker Name Role Phone Kymberly Mustafa MD Primary Care Provider + Encounters Date Type Department Care Team Description 08/22/2024 Travel 08/22/2024 10:45 AM CDT Office Visit [facility] [address] [place] [address] Lloyd Feldman MD Hx of preeclampsia, prior , currently , second trimester (Primary Dx); Suspected anomaly not found 08/22/2024 10:12 AM CDT - 08/22/2024 11:59 PM CDT Hospital Encounter [facility] [address] [place] [address] Lloyd Feldman MD Encounter for follow-up ultrasound of anatomy Discharge Disposition: Home or Self Care 08/01/2024 Travel 08/01/2024 10:58 AM CDT - 08/01/2024 11:59 PM CDT Hospital Encounter [facility] Medicine [facility] [address] [place] [address] Jenny Bill MD History of gestational hypertension Discharge Disposition: Home or Self Care 08/01/2024 11:45 AM CDT Office Visit [facility] Medicine [facility] [address] [place] [address] Jenny Bill MD Encounter for follow-up ultrasound of anatomy (Primary Dx); History of gestational hypertension; History of cholestasis during 07/29/2024 Travel 07/23/2024 PRE VISIT [facility] [address] [place] [address] Brittanie Davis RN Ultrasound (L2- Cholestasis in [...] Mass Index - - Plan of Treatment Not on file Procedures Procedure Name Priority Date/Time Associated Diagnosis Comments [facility] US COMPREHENSIVE SINGLE F/U Routine 08/22/2024 10:43 AM CDT Encounter for follow-up ultrasound of anatomy [facility] US COMPREHENSIVE SINGLE Routine 08/01/2024 12:22 PM CDT History of gestational hypertension from Last 3 Months Results * [facility] US Comprehensive Single F/U (08/22/2024 10:43 [...] ? Study Date: ??08/22/2024 10:13am Pat. NO: ??[id number] ?Referring ??MD: MIMI ROSELYN Site: ? City Plant Supervisor: Aarti Marinelli RDMS : ??1990 ?Age: ?? [...] lb 3 ?oz EFW by ? Hadlock ([id number]) Head / Face / Neck Biometry: Outside Dealer Sales Representative ?3.5 ? mm CM ? 3.2 ? mm ANATOMY ----- The following structures appear normal: Head / Neck ? Cranium. Head size. Head shape. Lateral ventricles. Midline falx. Cavum septi pellucidi. Cerebellum. Cisterna magna. Thalami. Face ? Lips. Profile. Nose. Heart / Thorax ?4-chamber view. RVOT view. LVOT view. 9-bfbhmt-vriiewg view. ? Diaphragm. Abdomen ? Stomach. Kidneys. [...] CORREA Study Date: 08/22/2024 10:13am Pat. NO: [id number] Referring MD: MIMI DEMPSEY Site: [place] Plant Supervisor: Aarti Marinelli RDMS : 1990 Age: 33 ----- INDICATION ----- Reevaluate [...] d 12/20/2024 Assigned dating based on ultrasound (GA), selected on w + 4 d 12/22/2024 [...] EFW (lb,oz) 1 lb 3oz EFW by Hadlock([id number]) Head / Face / Neck Biometry: Outside Dealer Sales Representative 3.5mm CM 3.2mm ANATOMY ----- The following structures appear normal: Head / Neck Cranium. Head size. Head shape.Lateral ventricles. Midline falx. Cavum septi pellucidi. Cerebellum.Cisterna magna. Thalami. Face Lips. Profile. Nose. Heart / Thorax 4-chamber view. RVOT view. LVOT view.8-fbtmgn-gptsoba view. Diaphragm. Abdomen Stomach. Kidneys. Bladder. The [...] amniotic fluid volume appeared normal. us Jenny GOVEA [facility] US ORDERABLES Edited Re sult - Final * [facility] Comprehensive Single (08/01/2024 12:22 PM CDT) Anatomical [...] ? Study Date: ??08/01/2024 11:05am Pat. NO: ??[id number] ?Referring ??: MIMI DEMPSEY Site: ? City Plant Supervisor: Paula Redmond RDMS : ??1990 ?Age: ?? [...] lb 10 ? oz EFW by ? [facility] ([id number]) Head / Face / Neck Biometry: Outside Dealer Sales Representative ?5.6 ? mm CM ? 4.6 ? [...] view. RVOT view. LVOT view. 3-vessel view. 0-lypbgc-phymyln view. Situs. Aortic arch view. Bicaval view. [...] CORREA Study Date: 08/01/2024 11:05am Pat. NO: [id number] Referring MD: MIMI DEMPSEY Site: City Plant Supervisor: Paula Redmond RDMS : 1990 Age: 33 [...] EFW (lb,oz) 0 lb 10oz EFW by Hadlock([id number]-FL) Head / Face / Neck Biometry: Outside Dealer Sales Representative 5.6mm CM 4.6mm Nasal bone 5.5mm ANATOMY ----- The following structures appear normal: Head / Neck Cranium. Head size. Head shape.Lateral ventricles. Choroid plexus. Midline falx. Cavum septi pellucidi.Cerebellum. Cisterna magna. Parenchyma. Thalami. Vermis. Neck. Nuchal fold. Face Lips. Profile. Nose. Maxilla.Mandible. Orbits. Lens. Heart / Thorax 4-chamber view. RVOT view. LVOT view.3-vessel view. 1-plyvkw-vosyeov view. Situs. Aortic arch view. Bicavalview. Ductal [...] long and closed. us Joelle River MD [facility] US ORDERABLES Edited Res ult - Final from Last 3 Months Insurance [place] [address] Care Teams Clipping Marker Relationship Specialty Start Date End Date Kymberly Mustafa MD [facility] & [address] [address] PCP - General Family Medicine 05/22/24
--- OUTSIDE RECORDS SUMMARY | 2024-08-28 10:58 | XMS_ITS | Encounter Summary ---
Author Organization [facility] Address [facility] [place] [address] Care Team Providers Care Tool Maker Bench Name Role Phone Kymberly Mustafa MD Primary Care Provider + Encounter Details Date Type Department Care Team (Latest Contact Info) Description 07/29/2024 Travel Social History Tobacco Use Types Packs/Day [...] on filedocumented in this encounter Care Teams Tool Maker Bench Relationship Specialty Start Date End Date Kymberly Mustafa MD [facility] & [address] [id number] PCP - General Family Medicine 05/22/24 documented as of this encounter
--- OUTSIDE RECORDS SUMMARY | 2024-08-28 10:58 | XMS_ITS | Encounter Summary ---
Author Organization [facility] Address [address] [place] [address] Care Team Providers Care Bag Worker Name Role Phone Unavailable Primary Care Provider Unavailabl e Reason for Visit * Appointment Request (Routine) - Closed Specialty Diagnoses / Procedures Referred By Contkatia t Referred To Contact Nephrology and Hypertension Siri Arguello M.D. [address] [place] [address] Phone: tel: fax: Referral ID Status Reason Start Date Expiration Date Visits Re quested Visits Authorized [id number] Closed 06/26/2024 06/26/2025 1 1 Encounter Details Date Type Department Care Team (Latest Contact Info) Description 06/30/2024 8:00 AM CDT External Outreach Division of Nephrology and Hypertension in [place], [place] [address] [place] [address] Darcy Whipple M.D., Ph.D. [address] [place] [address] Proteinuria (Primary Dx) Social History Tobacco Use Types Packs/Day Years Used Date Smoking Tobacco: Never Assessed Dental Answer Date Recorded Dental: Regular Dentist Unknown 06/26/20 24 Comments Unknown Sex and Gender Information Value Date Recorded Sex Assigned at Not on file Legal Sex Female 10:12 AM CDT Gender Identity Not on file Sexual Orientation Not on file documented as of this encounter Progress Notes * Darcy Whipple M.D., Ph.D. - 06/30/2024 8:00 AM CDT Referring Provider: Siri Arguello M.D. SUBJECTIVE CHIEF COMPLAINT/REASON FOR VISIT Proteinuria in . HISTORY OF PRESENT ILLNESS Mrs. Tee is a 33-year-old lady with a prior history of HELLP syndrome at 36 weeks during her first . She is currently on her 2nd . She has a gestational age approximately of 15weeks. She was found to have proteinuria on a screening urinalysis which confirmed a 24-hour urine collection of 450 mg of protein per day. Patient also has a history of cholestasis during ( last ). She has a history of depression and anxiety, on sertraline. Previously on Adderall, but this was stopped due to this . Recently, she was treated for bacterial vaginosis withmetronidazole. She has completed therapy. Her vaginosis symptoms have resolved. She does not check her blood pressure regularly at home. Today in clinic it is borderline low. She has not experienced any dizziness or light-headedness; however, she endorses fiua-nl-[id number] headache associated with visual changes such as aura. These headaches are not very frequent. She has been taking Tylenol for back and hip pain. She also goes to physical therapy for this pain that may be associated with changes in her hips due to . She is taking aspirin 81 mg daily, started at 12weeks. No family history of kidney disease. No family history of preeclampsia or HELLP syndrome. REVIEW OF SYSTEMS All other systems were reviewed and are negative, rest as per HPI. OBJECTIVE Vitals signs reviewed, within normal range PHYSICAL EXAMINATION General: No acute distress, breathing comfortably. Neuro: No focal deficits. Alert and oriented X 4. Skin: Warm. No rashes. Psych: Answers questions appropriately. No signs of anxiety or depression noted. DIAGNOSTICS Labs: I have reviewed available labs in detail with patient. ASSESSMENT / PLAN #1 Proteinuria in #2 Prior history of HELLP syndrome Patient is referred to Nephrology for evaluation of her proteinuria. It is subnephrotic range, around 450 mg. Unclear cause at this time. We will continue to monitor her proteinuria with a 24-hour urine collection to be done in 2 months from now. Urinalysis did not show hematuria. She has been treated for bacterial vaginosis. Prior urinalysis showed presence of yeast in clue cells. Her symptoms have resolved at this time. Elevated proteinuria could have been related to the presence of bacterialvaginosis. We will continue to monitor for now. I have recommended patient to start checking blood pressure at home, at least every week to every 2 weeks starting at week 20 of gestational age. Return visit in 2 months. All questions were answered. Idalia Núñez M.D., Ph.D. CT CT Job ID: [id number] documented in this encounter Plan of Treatment Not on file documented as of this encounter Visit Diagnoses Diagnosis Proteinuria- Primary documented in this encounter
--- OUTSIDE RECORDS SUMMARY | 2024-08-28 10:58 | XMS_ITS | Encounter Summary ---
Author Organization [facility] Address [address] [place] [address] Care Team Providers Care Manager Eligibility Name Role Phone Kymberly Mustafa MD Primary Care Provider + Reason for Referral * Diagnostic Imaging Ultrasound (Routine) - Pending Review Specialty Diagnoses / Procedures Referred By Huiac t Referred To Contact Radiology. Diagnoses Encounter for follow-up ultrasound of anatomy Procedures [facility] US Comprehensive Single F/U Jenny Bill MD [address] [place] [id number] Phone: tel: fax: Referral ID Status Reason Start Date Expiration Date V isits Requested Visits Authorized [id number] Pending Review 08/01/2024 08/01/2025 1 1 Reason for Visit * Diagnostic Imaging Ultrasound (Routine) - Pending Review Specialty Diagnoses / Procedures Referred By Contkatia t Referred To Contact Radiology. Diagnoses Encounter for follow-up ultrasound of anatomy Procedures [facility] US Comprehensive Single F/U Jenny Bill MD [address] [place] [address] Phone: tel: fax: Referral ID Status Reason Start Date Expiration Date V isits Requested Visits Authorized [id number] Pending Review 08/01/2024 08/01/2025 1 1 Encounter Details Date Type Department Care Team (Latest Contact Info) Description 08/22/2024 10:12 AM CDT - 08/22/2024 11:59 PM CDT Hospital Encounter [facility] [address] [place] [address] Lloyd Feldman MD [address] [facility] [address] [place] [address] Encounter for follow-up ultrasound of anatomy Discharge Disposition: Home or Self Care Social History Tobacco Use Types Packs/Day Years [...] on file documented as of this encounter Procedures Procedure Name Priority Date/Time Associated Diagnosis Comments [facility] US COMPREHENSIVE SINGLE F/U Routine 08/22/2024 10:43 AM CDT Encounter for follow-up ultrasound of anatomy documented in this encounter Results * [facility] US Comprehensive Single F/U (08/22/2024 10:43 [...] ? Study Date: ??08/22/2024 10:13am Pat. NO: ??[id number] ?Referring ??MD: MIMI ROSELYN Site: ? Meatman: Aarti Marinelli RDMS : ??1990 ?Age: ?? [...] lb 3 ?oz EFW by ? Hadlock ([id number]) Head / Face / Neck Biometry: Public Accountant ?3.5 ? mm CM ? 3.2 ? mm ANATOMY ----- The following structures appear normal: Head / Neck ? Cranium. Head size. Head shape. Lateral ventricles. Midline falx. Cavum septi pellucidi. Cerebellum. Cisterna magna. Thalami. Face ? Lips. Profile. Nose. Heart / Thorax ?4-chamber view. RVOT view. LVOT view. 2-omtfdu-eygsipt view. ? Diaphragm. Abdomen ? Stomach. Kidneys. [...] CORREA Study Date: 08/22/2024 10:13am Pat. NO: [id number] Referring MD: MIMI DEMPSEY Site: Meatman: Aarti MarinelliSEVERO : 1990 Age: 33 ----- INDICATION ----- [...] EFW (lb,oz) 1 lb 3oz EFW by Juan([id number]) Head / Face / Neck Biometry: Public Accountant 3.5mm CM 3.2mm ANATOMY ----- The following structures appear normal: Head / Neck Cranium. Head size. Head shape.Lateral ventricles. Midline falx. Cavum septi pellucidi. Cerebellum.Cisterna magna. Thalami. Face Lips. Profile. Nose. Heart / Thorax 4-chamber view. RVOT view. LVOT view.3-srdaeu-ieufbou view. Diaphragm. Abdomen Stomach. Kidneys. Bladder. The [...] volume appeared normal. us Jenny Bill MD [facility] US ORDERABLES Edited Re rai - Final documented in this encounter Visit Diagnoses Diagnosis Encounter for follow-up ultrasound of anatomy documented in this encounter Care Teams Manager Eligibility Relationship Specialty Start Date End Date Kymberly Mustafa MD [facility] & [place] [id number] PCP - General Family Medicine 05/22/24 documented as of this encounter
--- OUTSIDE RECORDS SUMMARY | 2024-08-28 10:58 | XMS_ITS | Referral Summary ---
Author Organization [facility] Address [address] [place] [address] Care Team Providers Care Pelt Salter Name Role Phone Unavailable Primary Care Provider Unavailabl e Source Comments Patient records contain information from all sites at [facility]. For routine questions regarding patient records, call [phone] during business hours, M-F 8:00 AM - 5:00 PM Central Time. Record requests for emergency care only can be directed to [phone] at any time.[facility] Encounters Date Type Department Care Team Description 06/30/2024 8:00 AM CDT External Outreach Division of Nephrology and Hypertension in [place], [place] [address] [place] [phone] Darcy Whipple M.D., Ph.D. Proteinuria (Primary Dx) from Last 3 Months Social History Tobacco Use Types Packs/Day Years Used Date Smoking Tobacco: Never Assessed Dental Answer Date Recorded Dental: Regular Dentist Unknown 06/26/20 24 Comments Unknown Sex and Gender Information Value Date Recorded Sex Assigned at Not on file Legal Sex Female 10:12 AM CDT Gender Identity Not on file Sexual Orientation Not on file Plan of Treatment Not on file [place] [address]
--- OUTSIDE RECORDS SUMMARY | 2024-08-28 10:58 | XMS_ITS | Encounter Summary ---
Author Organization [place] Address [address] [place] [address] Care Team Providers Care Grain Farmworker Name Role Phone Kymberly Mustafa MD Primary Care Provider + Reason for Referral * Diagnostic Imaging Ultrasound (Routine) - Pending Review Specialty Diagnoses / Procedures Referred By Contac t Referred To Contact Radiology. Diagnoses Encounter for follow-up ultrasound of anatomy Procedures [facility] US Comprehensive Single F/U Jenny Bill MD [address] [facility] [address] [place] [address] Phone: tel: fax: Referral ID Status Reason Start Date Expiration Date V isits Requested Visits Authorized [id number] Pending Review 08/01/2024 08/01/2025 1 1 Reason for Visit * Reason Comments Ultrasound L2-hx comp lications-cholestasis and HELLP syndrome Consult [facility] consult-hx pregn ferny complications-cholestasis and HELLP syndrome * Consultation (Routine: Next available opening) - Pending Review Specialty Diagnoses / Procedures Referred By Contac t Referred To Contact Diagnoses History of gestational hypertension Joelle River MD [address] [facility] [address] [place] [address] Phone: tel: fax: Referral ID Status Reason Start Date Expiration Date V isits Requested Visits Authorized [id number] Pending Review 05/22/2024 05/22/2025 1 1 Encounter Details Date Type Department Care Team (Late st Contact Info) Description 08/01/2024 11:45 AM CDT Office Visit [facility] Maternal Medicine Center [place] [address] [place] [address] Jenny Bill MD [address] [facility] [address] [place] [address] Encounter for follow-up ultrasound of anatomy (Primary Dx); History of gestational hypertension; History of cholestasis during Social History Tobacco Use Types Packs/Day Years [...] AM CDT documented as of this encounter Last Filed Vital Signs Vital Sign Reading Time Taken Comments Blood Pressure 98/66 08/01/2024 12:22 PM CDT Pulse 64 08/01/2024 12:22 PM CDT Temperature - - Respiratory Rate - - Oxygen Saturation 99% 08/01/2024 12:22 PM CDT Inhaled Oxygen Concentration - - Weight - - Height - - Body Mass Index - - documented in this encounter Progress Notes * Jenny Bill MD - 08/01/2024 11:45 AM CDT Images from the original note were not included. Maternal Medicine August 01, 2024 Dear Ms. Dempsey, Thank you for referring your patient Ms. Correa for a Maternal- Medicine consultation today.As you know, she is a 33 year old at 19w4d by early ultrasound presenting for MFM consultation given history of cholestasis of . She notes that her was uncomplicated until around 34 weeks. At that time, she began to notice pruritus and was diagnosed with cholestasis of . She had more frequent surveillance. 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 Her blood pressures were normal, however. She delivered a livebornfemale at 37w0d weighing 6 lbs 6 oz. Given this history, she underwent baseline preeclampsia lab testing as well as urine protein creatinine ratio, which was abnormal at 0.88. She then underwent 24 hour urine protein collection, which was also elevated at 455mg. Given this, she was referred to a nep hrologist. They recommended serial 24 hour urine protein testing every trimester. She also has questions regarding history of lichen sclerosus. She was diagnosed with this prior to and was prescribed clobetasol. She was told that there is no vulvovaginal atrophy visualized on exam, however, she continues to notice vulva itching. She has been testing for vulvovaginitis this . She is wondering what else can be done for this. Obstetrical History: OB History Para Term AB Living 2 1 1 0 0 1 SAB IAB Ectopic Multiple Live Births 0 0 0 0 1 # Outcome Date GA Lbr Bruce/2nd Weight Sex Type Anes PTL Lv 2 Current 1 Term 02/25/21 37w0d 2.892 kg (6 lb 6 oz) F EPI MICHAEL Complications: Cholestasis during Medical History: Past Medical History: Diagnosis Date Anxiety and depression History of cholestasis during Lichen sclerosus Surgical History: No past surgical history on file. BP 98/66 (BP Location: Left arm, Patient Position: Sitting, Cuff Size: Adult Regular) Pulse 64 LMP 03/10/2024 SpO2 99% Gen: NAD Assessment & Recommendations: 33 year old at 21w0d presenting given history of cholestasis of and documented HELLP syndrome. 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 History of cholestasis of We reviewed that intrahepatic cholestasis of (ICP) is a hepatic disorder characterized bypruritus and an elevation in serum bile acid levels which most commonly develops in the 2nd/3rd trimester of . The incidence has been estimated to range from 0.3% to 15% in various populations, with most of the estimates ranging from 0.3% to 0.5%. In non patients, cholestasis is most often a sign of an underlying hepatic disease such as biliary tract disease (common) and autoimmune disease (rare). In , cholestasis is most often self-limited and resolves after delivery.History of ICP in a prior confers increased risk of recurrence in subsequent pregnancies.ICP recurs in anyway from 60-70% of patients. Recurrent episodes are variable in severity compared to the index . Unfortunately, at this time, there are no known measures to reduce risk of recurrence. Documented history of HELLP syndrome We discussed that the recurrence risk of preeclampsia is about 25-30%. Initiation of low dose (81mg) aspirin is recommended for risk reduction and should be initiated between 12 and 28 weeks gestation (optimally before 16 weeks) and continued daily until delivery. Tarun is already taking aspirin.In women with a prior history of preeclampsia or an increased risk of developing preeclampsia due to other risk factors (multifetal gestation, renal disease, autoimmune disease, type 1 or type 2 diabetes, and chronic hypertension) low- dose aspirin may reduce the recurrence risk by up to 25%. We would also recommend baseline assessment of preeclampsia labs which were already done. Given diagnosis of subnephrotic range proteinuria, she was referred to nephrology for surveillance. We also reviewedthat preeclampsia can occur/worsen in the period so vigilant monitoring of blood pressures and symptoms in the first few weeks following delivery is also important. History of lichen sclerosus She was diagnosed prior to and had been on daily clobetasol, though this was decreased totwice weekly. She continues to have refractory symptoms. Discussed that, at this point, this is outside of my area of expertise. I recommend she continue to discuss with her primary clinic. Recommendations: Genetic screening - She declined genetic screening. Medications - Continue low dose aspirin for preeclampsia prophylaxis. Laboratory evaluation - s/p baseline preeclampsia labs and urine protein creatinine ratio and 24 urine protein per record Maternal antepartum management - Close monitoring of blood pressures Ultrasound surveillance - Comprehensive anatomy US Timing and mode of delivery - Per usual obstetric indications, though would consider delivery at 39 weeks unless otherwise clinically indicated sooner. At the end of our discussion, Ms. Correa indicated that her questions were answered and she seemed satisfied with our discussion. Thank you for the opportunity to participate in your patient???s care. If I can be of any further assistance, please do not hesitate to contact me. Sincerely, Jenny Bill MD Cabin Equipment Supervisor, BURRING MACHINE OPERATOR Maternal- Medicine I spent a total of 40 minutes during today's office visit with Ms. Correa. I also spent time reviewing the patient's medical record and documenting in her chart. Over 50% of this time was spent counseling the patient and/or coordinating care. Please see her note for specific details; I have made the necessary edits/additions. The patient was also seen for an ultrasound in the Maternal- Medicine Center today. For a detailed report of the ultrasound examination, please see the ultrasound report which can be found underthe imaging tab. documented in this encounter Nursing Notes * Anjali Ansari, RN - 08/01/2024 11:45 AM CDT Patient presents to [facility] for L2/MFM consult at 20w4d due to hx complications-cholestasis and HELLP syndrome. Positive movement. Denies LOF, vaginal bleeding or cramping/contractions. SBAR given to MFM MD, see their note in Epic. documented in this encounter Plan of Treatment Not on file documented as of this encounter Results * [facility] Comprehensive Single F/U (08/22/2024 10:43 AM CDT) [...] ? Study Date: ??08/22/2024 10:13am Pat. NO: ??[id number] ?Referring ??MD: JANUARY ROSELYN Site: ? Pickle Water Pump Operator: Aarti Marinelli RDMS : ??1990 ?Age: ?? [...] ?1 lb 3 ?oz EFW by ? [facility] ([id number]) Head / Face / Neck Biometry: Digester Capper ?3.5 ? mm CM ? 3.2 ? mm ANATOMY ----- The following structures appear normal: Head / Neck ? Cranium. Head size. Head shape. Lateral ventricles. Midline falx. Cavum septi pellucidi. Cerebellum. Cisterna magna. Thalami. Face ? Lips. Profile. Nose. Heart / Thorax ?4-chamber view. RVOT view. LVOT view. 9-fhuhhi-lhwrtem view. ? Diaphragm. Abdomen ? Stomach. Kidneys. [...] CORREA Study Date: 08/22/2024 10:13am Pat. NO: [id number] Referring MD: MIMI DEMPSEY Site: Pickle Water Pump Operator: Aarti Marinelli RDMS : 1990 Age: 33 [...] EFW (lb,oz) 1 lb 3oz EFW by Hadlock([id number]) Head / Face / Neck Biometry: Digester Capper 3.5mm CM 3.2mm ANATOMY ----- The following structures appear normal: Head / Neck Cranium. Head size. Head shape.Lateral ventricles. Midline falx. Cavum septi pellucidi. Cerebellum.Cisterna magna. Thalami. Face Lips. Profile. Nose. Heart / Thorax 4-chamber view. RVOT view. LVOT view.3-vvxfwr-pamcpqo view. Diaphragm. Abdomen Stomach. Kidneys. Bladder. The [...] volume appeared normal. us Jenny Bill MD [facility] US ORDERABLES Edited Re sult - Final documented in this encounter Visit Diagnoses Diagnosis Encounter for follow-up ultrasound of anatomy- Primary History of gestational hypertension History of cholestasis during Encounter for follow-up ultrasound of anatomy documented in this encounter Care Teams Grain Farmworker Relationship Specialty Start Date End Date Kymberly Mustafa MD [facility] [address] [place] [address] PCP - General Family Medicine 05/22/24 documented as of this encounter
--- OUTSIDE RECORDS SUMMARY | 2024-08-28 10:58 | XMS_ITS ---
Author Organization [facility] Address [address] [place] [address] Care Team Providers Care Relief Cook Name Role Phone Unavailable Unavailable Unavailable Surgery Details Not on file Complications Check Surgery Details section. Procedure Estimated Blood Loss Check Surgery Details section. Procedure Findings Check Surgery Details section. Procedure Specimens Taken Check Surgery Details section.
--- OUTSIDE RECORDS SUMMARY | 2024-08-28 10:58 | XMS_ITS | Encounter Summary ---
Author Organization [place] Address [address] [place] [address] Care Team Providers Care Flute Teacher Name Role Phone Kymberly Mustafa MD Primary Care Provider + Reason for Referral * Consultation (Routine: Next available opening) - Pending Review Specialty Diagnoses / Procedures Referred By Contac t Referred To Contact Diagnoses History of gestational hypertension Joelle River MD [address] [place] [address] Phone: tel: fax: Referral ID Status Reason Start Date Expiration Date V isits Requested Visits Authorized [id number] Pending Review 05/22/2024 05/22/2025 1 1 Question Answer Office Visit Type: M Consult Comments Radiologic * Diagnostic Imaging Ultrasound (Routine) - Pending Review Specialty Diagnoses / Procedures Referred By Contac t Referred To Contact Radiology. Diagnoses History of gestational hypertension Procedures [facility] US Comprehensive Single Joelle River MD [address] [address] Phone: tel: fax: Referral ID Status Reason Start Date Expiration Date V isits Requested Visits Authorized [id number] Pending Review 05/22/2024 05/22/2025 1 1 Encounter Details Date Type Department Care Team (Late st Contact Info) Description 05/22/2024 [facility] Maternal Medicine Center [place] [address] [place] [address] Lilia Andrea RN History of gestational hypertension (Primary Dx) Social History Tobacco Use Types Packs/Day Years Used Date Smoking Tobacco: Never Assessed Adolescent Education Answer Date Record ed Getting School Help Needed Not on file 07/14 Comments Unknown Sex and Gender Information Value Date Recorded Sex Assigned at Female 07/29/2024 8:27 AM CDT Legal Sex Female 8:03 AM CDT Gender Identity Female 07/29/2024 8:27 AM CDT Sexual Orientation Choose not to disclose 2023 8:27 AM CDT documented as of this encounter Plan of Treatment Scheduled Referrals Name Type Priority Associated Diagnoses Orde r Schedule [facility] Office Visit - [facility] Consult Referral Routine: Next available opening History of gestational hypertension Expected: 05/22/2024 (Approximate), Expires: 05/22/2025 documented as of this encounter Results * [facility] US Comprehensive Single (08/01/2024 12:22 PM [...] ? Study Date: ??08/01/2024 11:05am Pat. NO: ??[id number] ?Referring ??MD: JANUARY ROSELYN Site: ? Installer Inspector Final: Paula Redmond RDMS : ??1990 ?Age: ?? [...] 10 ? oz EFW by ? Hadlock ([id number]) Head / Face / Neck Biometry: Technical Sales Associate ?5.6 ? mm CM ? 4.6 ? [...] view. RVOT view. LVOT view. 3-vessel view. 9-bmcknj-ouyqngd view. Situs. Aortic arch view. Bicaval view. [...] CORREA Study Date: 08/01/2024 11:05am Pat. NO: [id number] Referring MD: MIMI ROSELYN Site: Installer Inspector Final: Paula Redmond RDMS : 1990 Age: 33 [...] EFW (lb,oz) 0 lb 10oz EFW by Hadlock([id number]) Head / Face / Neck Biometry: Technical Sales Associate 5.6mm CM 4.6mm Nasal bone 5.5mm ANATOMY ----- The following structures appear normal: Head / Neck Cranium. Head size. Head shape.Lateral ventricles. Choroid plexus. Midline falx. Cavum septi pellucidi.Cerebellum. Cisterna magna. Parenchyma. Thalami. Vermis. Neck. Nuchal fold. Face Lips. Profile. Nose. Maxilla.Mandible. Orbits. Lens. Heart / Thorax 4-chamber view. RVOT view. LVOT view.3-vessel view. 4-ceuuzb-gatuxgx view. Situs. Aortic arch view. Bicavalview. Ductal [...] long and closed. us Joelle River MD [facility] US ORDERABLES Edited Res ult - Final documented in this encounter Visit Diagnoses Diagnosis History of gestational hypertension- Primary History of gestational hypertension documented in this encounter Care Teams Flute Teacher Relationship Specialty Start Date End Date Kymberly Mustafa MD [facility] & [address] [address] PCP - General Family Medicine 05/22/24 documented as of this encounter
--- OUTSIDE RECORDS SUMMARY | 2024-08-28 10:58 | XMS_ITS | Clinical Summary ---
Author Organization [facility] Address [address] [place] [address] Care Team Providers Care Parts Consultant Name Role Phone Unavailable Primary Care Provider Unavailabl e Source Comments Patient records contain information from all sites at [facility]. For routine questions regarding patient records, call [phone] during business hours, M-F 8:00 AM - 5:00 PM Central Time. Record requests for emergency care only can be directed to [phone] at any time.[facility] Encounters Date Type Department Care Team Description 06/30/2024 8:00 AM CDT External Outreach Division of Nephrology and Hypertension in [place], [place] [address] [place] [address] Darcy Whipple M.D., Ph.D. Proteinuria (Primary Dx) [...] Orientation Not on file Plan of Treatment Health Maintenance Due Date Last Done Comments HIV Screening 1990 Hepatitis C Screening 1990 Cervical/Vaginal Cancer Screening 03/31/2022 03/31/2019 Depression Screening (Annual PHQ-2) 10/22/2023 COVID-19 Vaccine ( season) 2024 05/31/2021, 05/10/2021 Influenza Vaccine (#1) 2024 3, 07/28/2021, 07/27/2020, Additional history exists DTaP,Tdap,and Td Vaccines (8 - Td or Tdap) 01/07/2031 01/07/2021, 11/23/2010, 10/04/1994, Additional history exists IPV Vaccines Completed 10/04/1994, 12/21, 01/28/1991, Additional history exists Hepatitis B Vaccines Completed 08/27/2003, 04/02/2003, 01/29/2003 HPV Vaccines Completed 01/29/2008, 040 06/2008, 09/23/2007, Additional history exists Pneumococcal vaccine (0-64 years) Aged Out No longer eligible based on patient's age to complete this topic Insurance [address] [place] [phone] [facility] [place] [address]
--- OUTSIDE RECORDS SUMMARY | 2024-08-28 10:58 | XMS_ITS | Encounter Summary ---
Author Organization [place] Address [address] [place] [address] Care Team Providers Care Core Finisher Name Role Phone Kymberly Mustafa MD Primary Care Provider + Encounter Details Date Type Department Care Team (Late st Contact Info) Description 05/15/2024 Medical Correspondence [facility] Info Mgmt [facility] [address] [place] [address] Scan, Non-Provider Social History Tobacco Use Types Packs/Day Years [...] on filedocumented in this encounter Care Teams Core Finisher Relationship Specialty Start Date End Date Kymberly Mustafa MD [facility] & [address] [address] PCP - General Family Medicine 05/22/24 documented as of this encounter
--- OUTSIDE RECORDS SUMMARY | 2024-08-28 10:58 | XMS_ITS | Encounter Summary ---
Author Organization [place] Address [address] [place] [address] Care Team Providers Care Product Test Engineer Name Role Phone Kymberly Mustafa MD Primary Care Provider + Reason for Visit * Reason Comments Ultrasound L2- Cholestasis in p revious Consult History of Cholestas is in previous Encounter Details Date Type Department Care Team (Late st Contact Info) Description 07/23/[address] [facility] Maternal Medicine Center [place] [address] [facility] [address] [place] [address] Brittanie Davis RN Ultrasound (L2- Cholestasis in previous ); Consult (History of Cholestasis in previous ) Social History Tobacco Use Types Packs/Day Years [...] on filedocumented in this encounter Care Teams Product Test Engineer Relationship Specialty Start Date End Date Kymberly Mustafa MD [facility] & [address] [address] PCP - General Family Medicine 05/22/24 documented as of this encounter
--- OUTSIDE RECORDS SUMMARY | 2024-08-28 10:58 | XMS_ITS | Encounter Summary ---
Author Organization [place] Address [facility] [place] [address] Care Team Providers Care Cat Scan Tech Name Role Phone Kymberly Mustafa MD Primary Care Provider + Encounter Details Date Type Department Care Team (Latest Contact Info) Description 08/01/2024 Travel Social History Tobacco Use Types Packs/Day [...] on filedocumented in this encounter Care Teams Cat Scan Tech Relationship Specialty Start Date End Date Kymberly Mustafa MD [facility] & [address] [address] PCP - General Family Medicine 05/22/24 documented as of this encounter
--- OUTSIDE RECORDS SUMMARY | 2024-08-28 10:58 | XMS_ITS | Encounter Summary ---
Author Organization [place] Address [address] [place] [address] Care Team Providers Care Security Agent Name Role Phone Kymberly Mustafa MD Primary Care Provider + Reason for Referral * Diagnostic Imaging Ultrasound (Routine) - Pending Review Specialty Diagnoses / Procedures Referred By Contac t Referred To Contact Radiology. Diagnoses History of gestational hypertension Procedures [facility] US Comprehensive Single Joelle River MD [address] [place] [address] Phone: tel: fax: Referral ID Status Reason Start Date Expiration Date V isits Requested Visits Authorized [id number] Pending Review 05/22/2024 05/22/2025 1 1 Reason for Visit * Diagnostic Imaging Ultrasound (Routine) - Pending Review Specialty Diagnoses / Procedures Referred By Naren starkey Referred To Contact Radiology. Diagnoses History of gestational hypertension Procedures [facility] Single Joelle River MD [address] [address] Phone: tel: fax: Referral ID Status Reason Start Date Expiration Date V isits Requested Visits Authorized [id number] Pending Review 05/22/2024 05/22/2025 1 1 Encounter Details Date Type Department Care Team (Latest Contact Info) Description 08/01/2024 10:58 AM CDT - 08/01/2024 11:59 PM CDT Hospital Encounter [facility] Maternal Medicine [facility] [address] [place] [address] Jenny Bill MD [address] [facility] [address] [place] [address] History of gestational hypertension Discharge Disposition: Home or Self Care Social [...] Procedure Name Priority Date/Time Associated Diagnosis Comments [facility] US COMPREHENSIVE SINGLE Routine 08/01/2024 12:22 PM CDT History of gestational hypertension documented in this encounter Results * [facility] US Comprehensive Single (08/01/2024 12:22 PM [...] ? Study Date: ??08/01/2024 11:05am Pat. NO: ??[id number] ?Referring ??MD: MIMI DEMPSEY Site: ? Lace Winder: Paula Redmond RDMS : ??1990 ?Age: ?? [...] 10 ? oz EFW by ? Hadlock ([id number]) Head / Face / Neck Biometry: Child And Family Therapist ?5.6 ? mm CM ? 4.6 ? [...] view. RVOT view. LVOT view. 3-vessel view. 4-nodhww-wucikvu view. Situs. Aortic arch view. Bicaval view. [...] CORREA Study Date: 08/01/2024 11:05am Pat. NO: [id number] Referring MD: JANUARY ROSELYN Site: Lace Winder: Paula Redmond RDMS : 1990 Age: 33 [...] EFW (lb,oz) 0 lb 10oz EFW by Hadlock([id number]) Head / Face / Neck Biometry: Child And Family Therapist 5.6mm CM 4.6mm Nasal bone 5.5mm ANATOMY ----- The following structures appear normal: Head / Neck Cranium. Head size. Head shape.Lateral ventricles. Choroid plexus. Midline falx. Cavum septi pellucidi.Cerebellum. Cisterna magna. Parenchyma. Thalami. Vermis. Neck. Nuchal fold. Face Lips. Profile. Nose. Maxilla.Mandible. Orbits. Lens. Heart / Thorax 4-chamber view. RVOT view. LVOT view.3-vessel view. 6-ackkwe-urymwod view. Situs. Aortic arch view. Bicavalview. Ductal [...] long and closed. us Joelle River MD [facility] US ORDERABLES Edited Res ult - Final documented in this encounter Visit Diagnoses Diagnosis History of gestational hypertension documented in this encounter Care Teams Security Agent Relationship Specialty Start Date End Date Kymberly Mustafa MD [facility] & [facility] [address] [place] [address] PCP - General Family Medicine 05/22/24 documented as of this encounter
--- OUTSIDE RECORDS SUMMARY | 2024-08-28 10:58 | XMS_ITS | Clinical Summary ---
Author Organization [facility] Address [address] [place] [address] Care Team Providers Care Oracle Fusion Middleware Architect Name Role Phone Siri Gaines DO Primary Care Provider [phone] Source Comments You are receiving this document as you are listed as the primary care provider,follow-up provider, or the patient has been referred to you for consultation.This is in compliance with the Medicare and[facility] EHR Incentive Program,which states Providers who transition their patient to another setting of careor provider of care or refers their patient to another provider of care shouldprovide summary care record for each transition of care or referral. [facility] Allergies No known active allergies Medications Medication [...] 07/31/16 To be removed by 07/31/16 Lot# [id number] Varicella 07/17/2007 07/29/2014 Overview (06/13/2017): LW Onset: [id number] ; Varicella Zoster Other acne 07/13/2007 07/29/2014 Overview (06/13/2017): Acne Vulgaris Immunizations Name Administration Dates Next Due 4vHPV (Gardasil) 01/29/2008,09/23/2007, 7 9vHPV (Gardasil 9) 01/29/2008,09/21/2007, 007 DTP 10/04/1994, 2,03/31/1991,1990,1990 Fluzone Qiv Multidose Vial 0 .25 (6-35 Mos) 07/28/2021,07/17/2019,07/18/2018,2016 HepA Adult (19+ yrs) 11/23/2010,05/11/2010 HepB Ped/Adol (0-18 yrs) 08/27/2003,04/02/2003,0 01/29/2003 Hib (ActHIB) 01/14/1992, 1,01/28/1991,1990 Influenza IIV4 (Quadrivalent ) 0.5mL (09051) 09/06/2016 MCV4 (Menactra) 05/11/2010 MMR 04/02/2003,01/14/1992 Pfizer [...] reported Respiratory Rate 16 10/01/2009 7:59 AM AIRCRAFT MANAGER Oxygen Saturation - - Inhaled Oxygen Concentration [...] C Screening (Preventive Services) Completed 06/23/2022 (Completed) RSV Aged Out No longer eligi ble based on patient's age to complete this topic Pneumococcal Aged Out No longer eligi ble based on patient's age to complete this topic Procedures Procedure Name Priority Date/Time Associated Diagnosis Comments PAP TEST Routine 03/31/2019 1:05 PM CDT Annual physical exam from Last 3 Months or Most Recently Relevant to Health Maintenance Results * (ABNORMAL) PAP Test (03/31/2019 1:05 PM CDT) Case Report Pap ? Case: [id number] ? Authorizing Provider: ??Siri Gaines, DO ? Collected: ? 03/31/2019 01:05 PM ? [facility] Received: ?03/31/2019 03:26 PM ? First Screen: ?Kinza Rivas, CT ? (ASCP) ? Pathologist: ? Sharon Alejandre MD ? Specimen: ?Pap Test, Routine, Cervix/Endocerv ix ? 04/02/2019 2:13 PM CDT [facility] Pap Specimen Adequacy Satisfactory for evaluation, endocervical/tr ansformation zone component present. 04/02/2019 2:13 PM CDT [facility] Pap Interpretation Atypical squamous cells of undetermined significance (ASC-US).(A) 04/02/2019 2:13 PM CDT [facility] Gross Description The specimen is received in SurePath fixative and properly labeled. 1 Pap-stained SurePath slide is prepared. 04/02/2019 2:13 PM CDT [facility] Pap Disclaimer The Pap test is a screening test designed to aid in the detection of cervical cancer and its precursor lesions. It is not a diagnostic procedure and should not be used as the sole means of detecting cervical cancer. Both false-positive and false-negative reports may occur. 04/02/2019 2:13 PM CDT [facility] Embedded Images 2:13 PM CDT [facility] Other Specimen Type ENTIRE ENDOCERVIX / Unknown 03/31/2019 1:05 PM CDT 03/31/2019 3:26 PM CDT Comment:LMP: No LMP recorded . Siri Gaines DO LAB PATHOLOGY [facility] [address] [place] [address], [facility] from Last 3 Months or Most Recently Relevant to Health Maintenance Care Teams Oracle Fusion Middleware Architect Relationship Specialty Start Date End Date Siri Gaines DO [address] [place] [address] PCP - General 07/27/14
== END 2024-08-26 05:31 | disposition home or self-care (01) ==
LOC: NFLDREF 08-28 10:56
PROVIDERS: PCP Family Medicine; Referring Provider Family Medicine; Visit Provider Internal Medicine Nephrology
DX: R80.9 Proteinuria, unspecified (principal)
CPT/HCPCS: 82570; 84156

== ENCOUNTER 2024-09-04 09:29 | Outpatient (CLI) | payer BC, SELFPAY ==
--- OUTSIDE RECORDS SUMMARY | 2024-09-04 09:32 | XMS_ITS | Encounter Summary ---
Author Organization [facility] Address [address] [place] [address] Care Team Providers Care Hydrological Technical Officer Name Role Phone Unavailable Primary Care Provider Unavailabl e Reason for Visit * Appointment Request (Routine) - Closed Specialty Diagnoses / Procedures Referred By Contkatia t Referred To Contact Nephrology and Hypertension Siri Arguello M.D. [address] [place] [address] Phone: tel: fax: Referral ID Status Reason Start Date Expiration Date Visits Re quested Visits Authorized [id number] Closed 06/26/2024 06/26/2025 1 1 Encounter Details Date Type Department Care Team (Latest Contact Info) Description 06/30/2024 8:00 AM CDT External Outreach Division of Nephrology and Hypertension in [place], [place] [address] [place] [address] Darcy Whipple M.D., Ph.D. [address] [place] [address] Proteinuria (Primary Dx) Social History Tobacco Use [...] any dizziness or light-headedness; however, she endorses ckkt-de-tpfipzzw headache associated with visual changes such as [...] Núñez M.D., Ph.D. CT CT Job ID: [id number] documented in this encounter Plan of Treatment Not on file documented as of this encounter Visit Diagnoses Diagnosis Proteinuria- Primary documented in this encounter
--- OUTSIDE RECORDS SUMMARY | 2024-09-04 09:32 | XMS_ITS | Encounter Summary ---
Author Organization [place] Address [address] [place] [address] Care Team Providers Care Pharmaceutical Plant Operator Name Role Phone Kymberly Mustafa MD Primary Care Provider + Reason for Referral * Diagnostic Imaging Ultrasound (Routine) - Pending Review Specialty Diagnoses / Procedures Referred By Huiac t Referred To Contact Radiology. Diagnoses Encounter for follow-up ultrasound of anatomy Procedures [facility] US Comprehensive Single F/U Jenny Bill MD [address] [place] [id number] Phone: tel: fax: Referral ID Status Reason Start Date Expiration Date V isits Requested Visits Authorized [id number] Pending Review 08/01/2024 08/01/2025 1 1 Reason for Visit * Diagnostic Imaging Ultrasound (Routine) - Pending Review Specialty Diagnoses / Procedures Referred By Contkatia t Referred To Contact Radiology. Diagnoses Encounter for follow-up ultrasound of anatomy Procedures [facility] US Comprehensive Single F/U Jenny Bill MD [address] [place] [address] Phone: tel: fax: Referral ID Status Reason Start Date Expiration Date V isits Requested Visits Authorized [id number] Pending Review 08/01/2024 08/01/2025 1 1 Encounter Details Date Type Department Care Team (Latest Contact Info) Description 08/22/2024 10:12 AM CDT - 08/22/2024 11:59 PM CDT Hospital Encounter [facility] [place] [address] [place] [address] Lloyd Feldman MD [address] [facility] [address] [place] [address] Encounter for follow-up ultrasound of [...] Procedure Name Priority Date/Time Associated Diagnosis Comments [facility] US COMPREHENSIVE SINGLE F/U Routine 08/22/2024 10:43 AM CDT Encounter for follow-up ultrasound of anatomy documented in this encounter Results * [facility] US Comprehensive Single F/U (08/22/2024 10:43 AM [...] ? Study Date: ??08/22/2024 10:13am Pat. NO: ??[id number] ?Referring ??MD: MIMI ROSELYN Site: ? Musical Instrument Supervisor: Aarti Marinelli RDMS : ??1990 ?Age: [...] lb 3 ?oz EFW by ? Hadlock ([id number]) Head / Face / Neck Biometry: Engineering Design Manager ?3.5 ? mm CM ? 3.2 ? mm ANATOMY ----- The following structures appear normal: Head / Neck ? Cranium. Head size. Head shape. Lateral ventricles. Midline falx. Cavum septi pellucidi. Cerebellum. Cisterna magna. Thalami. Face ? Lips. Profile. Nose. Heart / Thorax ?4-chamber view. RVOT view. LVOT view. 2-sqbjcw-qotmcop view. ? Diaphragm. Abdomen ? Stomach. Kidneys. [...] CORREA Study Date: 08/22/2024 10:13am Pat. NO: [id number] Referring MD: MIMI DEMPSEY Site: Musical Instrument Supervisor: Aarti MarinelliSEVERO : 1990 Age: 33 ----- [...] EFW (lb,oz) 1 lb 3oz EFW by Juan(QTM-HB-HV-KS) Head / Face / Neck Biometry: Engineering Design Manager 3.5mm CM 3.2mm ANATOMY ----- The following structures appear normal: Head / Neck Cranium. Head size. Head shape.Lateral ventricles. Midline falx. Cavum septi pellucidi. Cerebellum.Cisterna magna. Thalami. Face Lips. Profile. Nose. Heart / Thorax 4-chamber view. RVOT view. LVOT view.5-szhfbz-jdzsxiq view. Diaphragm. Abdomen Stomach. Kidneys. Bladder. The [...] volume appeared normal. us Jenny Bill MD [facility] US ORDERABLES Edited Re rai - Final documented in this encounter Visit Diagnoses Diagnosis Encounter for follow-up ultrasound of anatomy documented in this encounter Care Teams Pharmaceutical Plant Operator Relationship Specialty Start Date End Date Kymberly Mustafa MD [facility] & [place] [id number] PCP - General Family Medicine 05/22/24 documented as of this encounter
--- OUTSIDE RECORDS SUMMARY | 2024-09-04 09:32 | XMS_ITS ---
Author Organization [facility] Address [address] [place] [address] Care Team Providers Care Vacuum Drum Drier Operator Name Role Phone Unavailable Unavailable Unavailable Surgery Details Not on file Complications Check Surgery Details section. Procedure Estimated Blood Loss Check Surgery Details section. Procedure Findings Check Surgery Details section. Procedure Specimens Taken Check Surgery Details section.
--- OUTSIDE RECORDS SUMMARY | 2024-09-04 09:32 | XMS_ITS | Clinical Summary ---
Author Organization [facility] Address [address] [place] [address] Care Team Providers Care Wildlife Rehabilitator Name Role Phone Unavailable Primary Care Provider Unavailabl e Source Comments Patient records contain information from all sites at [facility]. For routine questions regarding patient records, call [phone] during business hours, M-F 8:00 AM - 5:00 PM Central Time. Record requests for emergency care only can be directed to [phone] at any time.[facility] Encounters Date Type Department Care Team Description 06/30/2024 8:00 AM CDT External Outreach Division of Nephrology and Hypertension in [place], [place] [address] [place] [address] Darcy Whipple M.D., Ph.D. Proteinuria (Primary Dx) [...] topic Insurance [address] [place] [id number] [facility] [place] [address]
--- OUTSIDE RECORDS SUMMARY | 2024-09-04 09:32 | XMS_ITS | Encounter Summary ---
Author Organization [facility] Address [address] [place] [address] Care Team Providers Care Cutter Head Sharpener Name Role Phone Kymberly Mustafa MD Primary Care Provider + Reason for Visit * Reason Comments Ultrasound L2- Cholestasis in p revious Consult History of Cholestas is in previous Encounter Details Date Type Department Care Team (Late st Contact Info) Description 07/23/2024 PRE VISIT [facility] M[facility] Medicine [facility] [place] [address] [facility] [address] [place] [address] Brittanie Davis RN Ultrasound (L2- [...] on filedocumented in this encounter Care Teams Cutter Head Sharpener Relationship Specialty Start Date End Date Kymberly Mustafa MD [facility] & [address] [address] PCP - General Family Medicine 05/22/24 documented as of this encounter
--- OUTSIDE RECORDS SUMMARY | 2024-09-04 09:32 | XMS_ITS | Encounter Summary ---
Author Organization [place] Address [address] [place] [address] Care Team Providers Care Double Ending Machine Operator Name Role Phone Kymberly Mustafa MD Primary Care Provider + Reason for Visit * Reason Comments Ultrasound RL2-suboptimal anato my Encounter Details Date Type Department Care Team (Late st Contact Info) Description 08/22/2024 10:45 AM CDT Office Visit [facility] [place] [address] [facility] [address] [place] [address] Lloyd Feldman MD [address] [place] [address] Hx of preeclampsia, prior , [...] found documented in this encounter Care Teams Double Ending Machine Operator Relationship Specialty Start Date End Date Kymberly Mustafa MD [facility] & [address] [address] PCP - General Family Medicine 05/22/24 documented as of this encounter
--- OUTSIDE RECORDS SUMMARY | 2024-09-04 09:32 | XMS_ITS | Referral Summary ---
Author Organization [place] Address [address] [place] [address] Care Team Providers Care Hair Dresser Name Role Phone Kymberly Mustafa MD Primary Care Provider + Encounters Date Type Department Care Team Description 08/22/2024 Travel 08/22/2024 10:45 AM CDT Office Visit [facility] Maternal Medicine [facility] [address] [place] [address] Lloyd Feldman MD Hx of preeclampsia, prior , currently , second trimester (Primary Dx); Suspected anomaly not found 08/22/2024 10:12 AM CDT - 08/22/2024 11:59 PM CDT Hospital Encounter [facility] Medicine [facility] [address] [place] [address] Lloyd Feldman MD Encounter for follow-up ultrasound of anatomy Discharge Disposition: Home or Self Care 08/01/2024 Travel 08/01/2024 10:58 AM CDT - 08/01/2024 11:59 PM CDT Hospital Encounter [facility] Medicine [facility] [address] [place] [address] Jenny Bill MD History of gestational hypertension Discharge Disposition: Home or Self Care 08/01/2024 11:45 AM CDT Office Visit [facility] Medicine [facility] [address] [place] [address] Jenny Bill MD Encounter for follow-up ultrasound of anatomy (Primary Dx); History of gestational hypertension; History of cholestasis during 07/29/2024 Travel 07/23/2024 PRE VISIT [facility] M[facility] [place] [address] [facility] [address] [place] [address] Brittanie Davis RN Ultrasound (L2- [...] Procedure Name Priority Date/Time Associated Diagnosis Comments [facility] US COMPREHENSIVE SINGLE F/U Routine 08/22/2024 10:43 AM CDT Encounter for follow-up ultrasound of anatomy [facility] US COMPREHENSIVE SINGLE Routine 08/01/2024 12:22 PM CDT History of gestational hypertension from Last 3 Months Results * [facility] US Comprehensive Single F/U (08/22/2024 10:43 [...] ? Study Date: ??08/22/2024 10:13am Pat. NO: ??[id number] ?Referring ??MD: MIMI ROSELYN Site: ? Aircraft Assembler: Aarti Marinelli RDMS : ??1990 ?Age: ?? [...] lb 3 ?oz EFW by ? Hadlock ([id number]) Head / Face / Neck Biometry: Chinese Language Professor ?3.5 ? mm CM ? 3.2 ? mm ANATOMY ----- The following structures appear normal: Head / Neck ? Cranium. Head size. Head shape. Lateral ventricles. Midline falx. Cavum septi pellucidi. Cerebellum. Cisterna magna. Thalami. Face ? Lips. Profile. Nose. Heart / Thorax ?4-chamber view. RVOT view. LVOT view. 4-jpxhdv-xsxomuc view. ? Diaphragm. Abdomen ? Stomach. Kidneys. [...] CORREA Study Date: 08/22/2024 10:13am Pat. NO: [id number] Referring MD: MIMI DEMPSEY Site: Aircraft Assembler: Aarti Marinelli RDMS : 1990 Age: 33 [...] EFW (lb,oz) 1 lb 3oz EFW by Hadlock([id number]) Head / Face / Neck Biometry: Chinese Language Professor 3.5mm CM 3.2mm ANATOMY ----- The following structures appear normal: Head / Neck Cranium. Head size. Head shape.Lateral ventricles. Midline falx. Cavum septi pellucidi. Cerebellum.Cisterna magna. Thalami. Face Lips. Profile. Nose. Heart / Thorax 4-chamber view. RVOT view. LVOT view.5-qmhnsq-xecpmnx view. Diaphragm. Abdomen Stomach. Kidneys. Bladder. The [...] fluid volume appeared normal. us Jenny GOVEA [facility] US ORDERABLES Edited Re sult - Final * [facility] Comprehensive Single (08/01/2024 12:22 PM CDT) [...] ? Study Date: ??08/01/2024 11:05am Pat. NO: ??[id number] ?Referring ??: MIMI DEMPSEY Site: ? Aircraft Assembler: Paula Redmond RDMS : ??1990 ?Age: ?? [...] lb 10 ? oz EFW by ? [facility] ([id number]-[id number]-BD-FL) Head / Face / Neck Biometry: Chinese Language Professor ?5.6 ? mm CM ? 4.6 ? [...] view. RVOT view. LVOT view. 3-vessel view. 3-qbjtrg-leasgos view. Situs. Aortic arch view. Bicaval view. [...] CORREA Study Date: 08/01/2024 11:05am Pat. NO: [id number] Referring MD: MIMI DEMPSEY Site: Aircraft Assembler: Paula Redmond RDMS : 1990 Age: 33 [...] EFW (lb,oz) 0 lb 10oz EFW by Hadlock([id number]-TT-TH-FL) Head / Face / Neck Biometry: Chinese Language Professor 5.6mm CM 4.6mm Nasal bone 5.5mm ANATOMY ----- The following structures appear normal: Head / Neck Cranium. Head size. Head shape.Lateral ventricles. Choroid plexus. Midline falx. Cavum septi pellucidi.Cerebellum. Cisterna magna. Parenchyma. Thalami. Vermis. Neck. Nuchal fold. Face Lips. Profile. Nose. Maxilla.Mandible. Orbits. Lens. Heart / Thorax 4-chamber view. RVOT view. LVOT view.3-vessel view. 9-cyygbz-dehlwec view. Situs. Aortic arch view. Bicavalview. Ductal [...] long and closed. us Joelle River MD [facility] US ORDERABLES Edited Res ult - Final from Last 3 Months Insurance [facility] Care Teams Hair Dresser Relationship Specialty Start Date End Date Kymberly Mustafa MD [facility] & [address] [address] PCP - General Family Medicine 05/22/24
--- OUTSIDE RECORDS SUMMARY | 2024-09-04 09:32 | XMS_ITS | Encounter Summary ---
Author Organization [place] Address [facility] [address] [place] [address] Care Team Providers Care Shot Lighter Name Role Phone Kymberly Mustafa MD Primary [...] on filedocumented in this encounter Care Teams Shot Lighter Relationship Specialty Start Date End Date Kymberly Mustafa MD [facility] & [address] [address] PCP - General Family Medicine 05/22/24 documented as of this encounter
--- OUTSIDE RECORDS SUMMARY | 2024-09-04 09:32 | XMS_ITS | Encounter Summary ---
Author Organization [place] Address [facility] [place] [address] Care Team Providers Care Bpm Solution Architect Name Role Phone Kymberly Mustafa MD Primary [...] on filedocumented in this encounter Care Teams Bpm Solution Architect Relationship Specialty Start Date End Date Kymberly Mustafa MD [facility] & [address] [address] PCP - General Family Medicine 05/22/24 documented as of this encounter
--- OUTSIDE RECORDS SUMMARY | 2024-09-04 09:32 | XMS_ITS | Clinical Summary ---
Author Organization [facility] Address [address] [place] [address] Care Team Providers Care Bible Teacher Name Role Phone Kymberly Mustafa MD Primary Care Provider + Encounters Date Type Department Care Team Description 08/22/2024 10:45 AM CDT Office Visit [facility] Medicine [place] [address] [facility] [address] [place] [address] Lloyd Feldman MD Hx of preeclampsia, prior , currently , second trimester (Primary Dx); Suspected anomaly not found 08/22/2024 10:12 AM CDT - 08/22/2024 11:59 PM CDT Hospital Encounter [facility] Medicine [facility] [address] [facility] [address] [place] [address] Lloyd Feldman MD Encounter for follow-up ultrasound of anatomy Discharge Disposition: Home or Self Care 08/22/2024 Travel 08/01/2024 11:45 AM CDT Office Visit [facility] Medicine [facility] [address] [place] [address] Jenny Bill MD Encounter for follow-up ultrasound of anatomy (Primary Dx); History of gestational hypertension; History of cholestasis during 08/01/2024 10:58 AM CDT - 08/01/2024 11:59 PM CDT Hospital Encounter [facility] Medicine [facility] [address] [place] [address] Jenny Bill MD History of gestational hypertension Discharge Disposition: Home or Self Care 08/01/2024 Travel 07/29/2024 Travel 07/23/2024 PRE VISIT [facility] [place] [address] [facility] [address] [place] [address] Brittanie Davis RN Ultrasound (L2- Cholestasis in [...] Procedure Name Priority Date/Time Associated Diagnosis Comments [facility] US COMPREHENSIVE SINGLE F/U Routine 08/22/2024 10:43 AM CDT Encounter for follow-up ultrasound of anatomy [facility] US COMPREHENSIVE SINGLE Routine 08/01/2024 12:22 PM CDT History of gestational hypertension from Last 3 Months Results * [facility] US Comprehensive Single F/U (08/22/2024 10:43 [...] ? Study Date: ??08/22/2024 10:13am Pat. NO: ??[id number] ?Referring ??MD: JANUARY ROSELYN Site: ? Freight Rate Specialist: Aarti Marinelli RDMS : ??1990 ?Age: ?? [...] lb 3 ?oz EFW by ? Hadlock ([id number]) Head / Face / Neck Biometry: Chronometer Assembler And Adjuster ?3.5 ? mm CM ? 3.2 ? mm ANATOMY ----- The following structures appear normal: Head / Neck ? Cranium. Head size. Head shape. Lateral ventricles. Midline falx. Cavum septi pellucidi. Cerebellum. Cisterna magna. Thalami. Face ? Lips. Profile. Nose. Heart / Thorax ?4-chamber view. RVOT view. LVOT view. 9-qjstmf-mswjsfp view. ? Diaphragm. Abdomen ? Stomach. Kidneys. [...] CORREA Study Date: 08/22/2024 10:13am Pat. NO: [id number] Referring MD: MIMI DEMPSEY Site: Freight Rate Specialist: Aarti Marinelli RDMS DOB: 1990 Age: 33 [...] EFW (lb,oz) 1 lb 3oz EFW by Juan([id number]-[id number]-MT) Head / Face / Neck Biometry: Chronometer Assembler And Adjuster 3.5mm CM 3.2mm ANATOMY ----- The following structures appear normal: Head / Neck Cranium. Head size. Head shape.Lateral ventricles. Midline falx. Cavum septi pellucidi. Cerebellum.Cisterna magna. Thalami. Face Lips. Profile. Nose. Heart / Thorax 4-chamber view. RVOT view. LVOT view.9-pdcqut-doreuqc view. Diaphragm. Abdomen Stomach. Kidneys. Bladder. The [...] appeared normal. us Jenny Bill MD Rob [facility] US ORDERABLES Edited Re sult - Final * [facility] US Comprehensive Single (08/01/2024 12:22 [...] ? Study Date: ??08/01/2024 11:05am Pat. NO: ??[id number] ?Referring ??MD: MIMI DEMPSEY Site: ? Freight Rate Specialist: Paula Redmond RDMS : ??1990 ?Age: ?? [...] 10 ? oz EFW by ? Hadlock ([id number]-[id number]-FL) Head / Face / Neck Biometry: Chronometer Assembler And Adjuster ?5.6 ? mm CM ? 4.6 ? [...] view. RVOT view. LVOT view. 3-vessel view. 1-dyzqhm-pytcwta view. Situs. Aortic arch view. Bicaval view. [...] CORREA Study Date: 08/01/2024 11:05am Pat. NO: [id number] Referring MD: MIMI DEMPSEY Site: Freight Rate Specialist: Paula Redmond RDMS : 1990 Age: 33 [...] EFW (lb,oz) 0 lb 10oz EFW by Hadlock(UVA-YS-XA-FL) Head / Face / Neck Biometry: Chronometer Assembler And Adjuster 5.6mm CM 4.6mm Nasal bone 5.5mm ANATOMY ----- The following structures appear normal: Head / Neck Cranium. Head size. Head shape.Lateral ventricles. Choroid plexus. Midline falx. Cavum septi pellucidi.Cerebellum. Cisterna magna. Parenchyma. Thalami. Vermis. Neck. Nuchal fold. Face Lips. Profile. Nose. Maxilla.Mandible. Orbits. Lens. Heart / Thorax 4-chamber view. RVOT view. LVOT view.3-vessel view. 5-micvte-rtdholg view. Situs. Aortic arch view. Bicavalview. Ductal [...] - Final from Last 3 Months Insurance [facility] Care Teams Bible Teacher Relationship Specialty Start Date End Date Kymberly Mustafa MD [facility] & [address] [address] PCP - General Family Medicine 05/22/24
--- OUTSIDE RECORDS SUMMARY | 2024-09-04 09:32 | XMS_ITS | Encounter Summary ---
Author Organization [place] Address [address] [place] [address] Care Team Providers Care Shell Core And Molding Supervisor Name Role Phone Kymberly Mustafa MD Primary Care Provider + Reason for Referral * Diagnostic Imaging Ultrasound (Routine) - Pending Review Specialty Diagnoses / Procedures Referred By Contac t Referred To Contact Radiology. Diagnoses History of gestational hypertension Procedures [facility] US Comprehensive Single Joelle River MD [address] [place] [id number] Phone: tel: fax: Referral ID Status Reason Start Date Expiration Date V isits Requested Visits Authorized [id number] Pending Review 05/22/2024 05/22/2025 1 1 Reason for Visit * Diagnostic Imaging Ultrasound (Routine) - Pending Review Specialty Diagnoses / Procedures Referred By Naren starkey Referred To Contact Radiology. Diagnoses History of gestational hypertension Procedures [facility] Single Jeolle River MD [address] [address] Phone: tel: fax: Referral ID Status Reason Start Date Expiration Date V isits Requested Visits Authorized [id number] Pending Review 05/22/2024 05/22/2025 1 1 Encounter Details Date Type Department Care Team (Latest Contact Info) Description 08/01/2024 10:58 AM CDT - 08/01/2024 11:59 PM CDT Hospital Encounter [facility] Maternal Medicine [facility] [address] [place] [address] Jenny Bill MD [address] [facility] [address] [place] [address] History of gestational hypertension Discharge [...] Procedure Name Priority Date/Time Associated Diagnosis Comments [facility] US COMPREHENSIVE SINGLE Routine 08/01/2024 12:22 PM CDT History of gestational hypertension documented in this encounter Results * [facility] US Comprehensive Single (08/01/2024 12:22 PM [...] ? Study Date: ??08/01/2024 11:05am Pat. NO: ??[id number] ?Referring ??MD: MIMI DEMPSEY Site: ? Can Dragger: Paula Redmond RDMS : ??1990 ?Age: ?? [...] 10 ? oz EFW by ? [facility]lock ([id number]) Head / Face / Neck Biometry: Soda Dialyzer ?5.6 ? mm CM ? 4.6 ? [...] view. RVOT view. LVOT view. 3-vessel view. 7-cybmnu-looceox view. Situs. Aortic arch view. Bicaval view. [...] CORREA Study Date: 08/01/2024 11:05am Pat. NO: [id number] Referring MD: JANUARY ROSELYN Site: Can Dragger: Paula Redmond RDMS : 1990 Age: 33 [...] EFW (lb,oz) 0 lb 10oz EFW by Hadlock([id number]) Head / Face / Neck Biometry: Soda Dialyzer 5.6mm CM 4.6mm Nasal bone 5.5mm ANATOMY ----- The following structures appear normal: Head / Neck Cranium. Head size. Head shape.Lateral ventricles. Choroid plexus. Midline falx. Cavum septi pellucidi.Cerebellum. Cisterna magna. Parenchyma. Thalami. Vermis. Neck. Nuchal fold. Face Lips. Profile. Nose. Maxilla.Mandible. Orbits. Lens. Heart / Thorax 4-chamber view. RVOT view. LVOT view.3-vessel view. 5-idwhqr-krsgwnx view. Situs. Aortic arch view. Bicavalview. Ductal [...] and closed. us Joelle River MD [facility] US ORDERABLES Edited Res ult - Final documented in this encounter Visit Diagnoses Diagnosis History of gestational hypertension documented in this encounter Care Teams Shell Core And Molding Supervisor Relationship Specialty Start Date End Date Kymberly Mustafa MD [facility] [address] [place] [address] PCP - General Family Medicine 05/22/24 documented as of this encounter
--- OUTSIDE RECORDS SUMMARY | 2024-09-04 09:32 | XMS_ITS | Encounter Summary ---
Author Organization [place] Address [facility] [place] [address] Care Team Providers Care Early Childhood Services Coordinator Name Role Phone Kymberly Mustafa MD Primary [...] on filedocumented in this encounter Care Teams Early Childhood Services Coordinator Relationship Specialty Start Date End Date Kymberly Mustafa MD [facility] & [address] [address] PCP - General Family Medicine 05/22/24 documented as of this encounter
--- OUTSIDE RECORDS SUMMARY | 2024-09-04 09:32 | XMS_ITS | Encounter Summary ---
Author Organization [place] Address [address] [place] [address] Care Team Providers Care Director Personal Name Role Phone Kymberly Mustafa MD Primary Care Provider + Reason for Referral * Diagnostic Imaging Ultrasound (Routine) - Pending Review Specialty Diagnoses / Procedures Referred By Contac t Referred To Contact Radiology. Diagnoses Encounter for follow-up ultrasound of anatomy Procedures [facility] US Comprehensive Single F/U Jenny Bill MD [address] [facility] [address] [place] [address] Phone: tel: fax: Referral ID Status Reason Start Date Expiration Date V isits Requested Visits Authorized [id number] Pending Review 08/01/2024 08/01/2025 1 1 Reason for Visit * Reason Comments Ultrasound L2-hx comp lications-cholestasis and HELLP syndrome Consult [facility] consult-hx pregn ferny complications-cholestasis and HELLP syndrome * Consultation (Routine: Next available opening) - Pending Review Specialty Diagnoses / Procedures Referred By Contac t Referred To Contact Diagnoses History of gestational hypertension Joelle River MD [address] [facility] [address] [place] [address] Phone: tel: fax: Referral ID Status Reason Start Date Expiration Date V isits Requested Visits Authorized [id number] Pending Review 05/22/2024 05/22/2025 1 1 Encounter Details Date Type Department Care Team (Late st Contact Info) Description 08/01/2024 11:45 AM CDT Office Visit [facility] Maternal Medicine [facility] [place] [address] [place] [address] Jenny Bill MD [address] [address] [place] [address] Encounter for follow-up ultrasound of [...] patient report and records available to this quality analyst/technical writer, she was found to have elevated [...] her prior were not available to this quality analyst/technical writer, however, reviewed relevant risks during the [...] to contact me. Sincerely, Jenny Bill MD Crm Campaign Manager, [employer]CH OR DEPARTMENT CHIEF LIBRARIAN Maternal- Medicine I spent a total of [...] 08/01/2024 11:45 AM CDT Patient presents to [facility] for L2/MFM consult at 20w4d due to hx complications-cholestasis and HELLP syndrome. Positive movement. Denies LOF, vaginal bleeding or cramping/contractions. SBAR given to MFM MD, see their note in Epic. documented in this encounter Plan of Treatment Not on file documented as of this encounter Results * [facility] Comprehensive Single F/U (08/22/2024 10:43 [...] ? Study Date: ??08/22/2024 10:13am Pat. NO: ??[id number] ?Referring ??MD: JANUARY ROSELYN Site: ? Rn Surgery Icu: Aarti Marinelli RDMS : ??1990 ?Age: ?? [...] ?oz EFW by ? [facility] ([id number]) Head / Face / Neck Biometry: Supervisor Cured Meats ?3.5 ? mm CM ? 3.2 ? mm ANATOMY ----- The following structures appear normal: Head / Neck ? Cranium. Head size. Head shape. Lateral ventricles. Midline falx. Cavum septi pellucidi. Cerebellum. Cisterna magna. Thalami. Face ? Lips. Profile. Nose. Heart / Thorax ?4-chamber view. RVOT view. LVOT view. 5-ftahwx-bjuwlgd view. ? Diaphragm. Abdomen ? Stomach. Kidneys. [...] CORREA Study Date: 08/22/2024 10:13am Pat. NO: [id number] Referring MD: MIMI DEMPSEY Site: Rn Surgery Icu: Aarti Marinelli RDMS : 1990 Age: 33 [...] EFW (lb,oz) 1 lb 3oz EFW by Hadlock([id number]) Head / Face / Neck Biometry: Supervisor Cured Meats 3.5mm CM 3.2mm ANATOMY ----- The following structures appear normal: Head / Neck Cranium. Head size. Head shape.Lateral ventricles. Midline falx. Cavum septi pellucidi. Cerebellum.Cisterna magna. Thalami. Face Lips. Profile. Nose. Heart / Thorax 4-chamber view. RVOT view. LVOT view.8-rpsdtv-qfvimez view. Diaphragm. Abdomen Stomach. Kidneys. Bladder. The [...] volume appeared normal. us Jenny Bill MD [facility] US ORDERABLES Edited Re sult - Final documented in this encounter Visit Diagnoses Diagnosis Encounter for follow-up ultrasound of anatomy- Primary History of gestational hypertension History of cholestasis during Encounter for follow-up ultrasound of anatomy documented in this encounter Care Teams Director Personal Relationship Specialty Start Date End Date Kymberly Mustafa MD [facility] [address] [place] [address] PCP - General Family Medicine 05/22/24 documented as of this encounter
--- OUTSIDE RECORDS SUMMARY | 2024-09-04 09:32 | XMS_ITS | Clinical Summary ---
Author Organization [facility] Address [address] [place] [address] Care Team Providers Care Industrial Relations Manager Name Role Phone Siri Gaines DO Primary Care Provider [phone] Source Comments You are receiving this document as you are listed as the primary care provider,follow-up provider, or the patient has been referred to you for consultation.This is in compliance with the Medicare and[facility] EHR Incentive Program,which states Providers who transition their patient to another setting of careor provider of care or refers their patient to another provider of care shouldprovide summary care record for each transition of care or referral. [facility] Allerg[facility] No known active allergies Medications Medication [...] 07/31/16 To be removed by 07/31/16 Lot# [id number] Varicella 07/17/2007 07/29/2014 Overview (06/13/2017): LW Onset: [id number] ; Varicella Zoster Other acne 07/13/2007 07/29/2014 Overview (06/13/2017): Acne Vulgaris Immunizations Name Administration Dates Next Due 4vHPV (Gardasil) 01/29/2008,09/23/2007, 7 9vHPV (Gardasil 9) 01/29/2008,09/21/2007, 007 DTP 10/04/1994, 2,03/31/1991,1990,1990 Fluzone Qiv Multidose Vial 0 .25 (6-35 Mos) 07/28/2021,07/17/2019,07/18/2018,2016 HepA Adult (19+ yrs) 11/23/2010,05/11/2010 HepB Ped/Adol (0-18 yrs) 08/27/2003,04/02/2003,0 01/29/2003 Hib (ActHIB) 01/14/1992, 1,01/28/1991,1990 Influenza IIV4 (Quadrivalent ) 0.5mL (60032) 09/06/2016 MCV4 (Menactra) 05/11/2010 MMR 04/02/2003,01/14/1992 Pfizer [...] reported Respiratory Rate 16 10/01/2009 7:59 AM LINING SEWER Oxygen Saturation - - Inhaled Oxygen Concentration [...] C Screening (Preventive Services) Completed 06/23/2022 (Completed) Infant RSV Aged Out No longer eligi ble [...] PM CDT) Case Report Pap ? Case: [id number] ? Authorizing Provider: ??Siri Gaines, DO ? Collected: ? 03/31/2019 01:05 PM ? [facility] Received: ?03/31/2019 03:26 PM ? First Screen: ?Kinza Rivas, CT ? (ASCP) ? Pathologist: ? Sharon Alejandre MD ? Specimen: ?Pap Test, Routine, Cervix/Endocerv ix ? 04/02/2019 2:13 PM CDT [facility] Pap Specimen Adequacy Satisfactory for evaluation, endocervical/tr ansformation zone component present. 04/02/2019 2:13 PM CDT [facility] Pap Interpretation Atypical squamous cells of undetermined significance (ASC-US).(A) 04/02/2019 2:13 PM CDT [facility] Gross Description The specimen is received in SurePath fixative and properly labeled. 1 Pap-stained SurePath slide is prepared. 04/02/2019 2:13 PM CDT [facility] Pap Disclaimer The Pap test is a screening test designed to aid in the detection of cervical cancer and its precursor lesions. It is not a diagnostic procedure and should not be used as the sole means of detecting cervical cancer. Both false-positive and false-negative reports may occur. 04/02/2019 2:13 PM CDT [facility] Embedded Images 2:13 PM CDT [facility] Other Specimen Type ENTIRE ENDOCERVIX / Unknown 03/31/2019 1:05 PM CDT 03/31/2019 3:26 PM CDT Comment:LMP: No LMP recorded . Siri Gaines DO LAB PATHOLOGY [facility] [address] [place] [address], [facility] from Last 3 Months or Most Recently Relevant to Health Maintenance Care Teams Industrial Relations Manager Relationship Specialty Start Date End Date Siri Gaines DO [address] [place] [address] PCP - General 07/27/14
--- OUTSIDE RECORDS SUMMARY | 2024-09-04 09:32 | XMS_ITS | Referral Summary ---
Author Organization [facility] Address [address] [place] [address] Care Team Providers Care City Superintendent Name Role Phone Unavailable Primary Care Provider Unavailabl e Source Comments Patient records contain information from all sites at [facility]. For routine questions regarding patient records, call [phone] during business hours, M-F 8:00 AM - 5:00 PM Central Time. Record requests for emergency care only can be directed to [phone] at any time.[facility] Encounters Date Type Department Care Team Description 06/30/2024 8:00 AM CDT External Outreach Division of Nephrology and Hypertension in [place], [place] [address] [place] [phone] Darcy Whipple M.D., Ph.D. Proteinuria (Primary Dx) [...] Plan of Treatment Not on file Insurance [facility]
[2024-09-04 14:15] LABS: Bacterial Vaginosis* Negative (Negative); Candida glab/krus NOT DETECTED (No Detected); Candida species DETECTED (No Detected); Trichomonas vaginalis NOT DETECTED (No Detected)
== END 2024-09-04 09:30 | disposition home or self-care (01) ==
LOC: NFLDREF 09:29
PROVIDERS: PCP Family Medicine; Visit Provider Obstetrics & Gynecology
DX: L29.2 Pruritus vulvae (principal)
CPT/HCPCS: 81513; 87481; 87661

== ENCOUNTER 2024-10-01 09:10 | Outpatient (CLI) | payer BC, SELFPAY | END 2024-10-01 09:11 | disposition home or self-care (01) | LOC: NFLDREF 10-02 12:49 | PROVIDERS: PCP Family Medicine; Referring Provider Family Medicine; Visit Provider Obstetrics & Gynecology | DX: Z34.83 Encounter for supervision of other normal pregnancy, third trimester (principal); R80.9 Proteinuria, unspecified | CPT/HCPCS: 82570; 84156; 86592 ==

== ENCOUNTER 2024-10-13 09:17 | Outpatient (CLI) | payer BC, SELFPAY | END 2024-10-13 09:18 | disposition home or self-care (01) | PROVIDERS: PCP Family Medicine; Visit Provider Obstetrics & Gynecology | DX: Z34.93 Encounter for supervision of normal pregnancy, unspecified, third trimester (principal); Z3A.30 30 weeks gestation of pregnancy | CPT/HCPCS: 82239; 82565; 84450; 84460; 84520 ==

== ENCOUNTER 2024-10-27 06:30 | Outpatient (CLI) | payer BC, SELFPAY | END 2024-10-27 06:31 | disposition home or self-care (01) | LOC: NFLDREF 10-28 02:06 | PROVIDERS: PCP Family Medicine; Referring Provider Family Medicine; Visit Provider Internal Medicine Nephrology | DX: R80.9 Proteinuria, unspecified (principal) | CPT/HCPCS: 82570; 84156 ==

== ENCOUNTER 2024-11-14 08:44 | Outpatient (CLI) | payer BC, SELFPAY | END 2024-11-14 08:45 | disposition home or self-care (01) | LOC: NFLDREF 11-23 23:39 | PROVIDERS: PCP Family Medicine; Referring Provider Family Medicine; Visit Provider Obstetrics & Gynecology | DX: Z34.93 Encounter for supervision of normal pregnancy, unspecified, third trimester (principal); Z3A.34 34 weeks gestation of pregnancy | CPT/HCPCS: 82239; 82728; 84450; 84460 ==

== ENCOUNTER 2024-11-26 08:23 | Outpatient (CLI) | payer BC, SELFPAY ==
[2024-11-27 12:11] LABS: Strep B DNA Probe Negative (Negative)
[2024-11-27 13:23] LABS: Strep B Susceptibility Needed? No
== END 2024-11-26 08:24 | disposition home or self-care (01) ==
LOC: FRMREF 08:23
PROVIDERS: PCP Family Medicine; Visit Provider Obstetrics & Gynecology
DX: Z34.93 Encounter for supervision of normal pregnancy, unspecified, third trimester (principal); Z3A.36 36 weeks gestation of pregnancy
CPT/HCPCS: 87081; 87653

== ENCOUNTER 2024-11-30 14:07 | Inpatient (IN) | payer BC, SELFPAY ==
[2024-11-30] VITALS (18 sets, daily range): BP systolic 104–117; BP diastolic 56–69; PULSE 62–86; RESP 16–18; TEMP 36.4–37; O2SAT 96–98; BMI 29.0
[2024-11-30 13:26] LABS: Basophils Absolute Auto 0.02 K/uL (0.00-0.30); Basophils Percent Auto 0.2 % (0.0-3.0); Eosinophils Absolute Auto 0.03 K/uL (0.00-0.50); Eosinophils Percent Auto 0.4 % (0.0-7.0); Hematocrit 32.7 % (33.0-51.0); Immature Granulocytes Abs Auto 0.02 K/uL (0.00-0.30); Immature Granulocytes Pct Auto 0.2 %; Mean Corpuscular HGB Conc 34 gm/dL (32-36); Mean Corpuscular Hemoglobin 29 pg (26-34); Mean Corpuscular Volume 86 fL (80-100); Monocytes Percent Auto 7.7 % (0.0-11.0); Neutrophils Percent Auto 72.5 % (42.0-72.0); Platelet Count* 140 K/uL (140-440); RDW Coefficient of Variation % 13.2 % (11.5-15.5); Red Blood Count 3.82 m/uL (4.00-5.20); White Blood Count* 8.19 K/uL (4.50-11.00)
[2024-11-30 13:31] LABS: Slide Review Reflex No
--- NOTE | 2024-11-30 13:32 | CRLHL7_ITS ---
For Patients: As a result of the Century Cures Act, medical imaging exams and procedure reports are released immediately into your electronic medical record. You may view this report before your referring provider. If you have questions, please contact your health care provider. INDICATION: Suspecting cholestasis. (Sic) No other clinical history is provided. COMPARISON: None available. TECHNIQUE: Grayscale pelvic ultrasound via a transabdominal approach. FINDINGS: number: 1 Position: Cephalic. Placental Position: Fundal. Amniotic fluid: DVP 6.8cm. heart rate: 142bpm. BPD: 9.5cm; 38 weeks and 5 days. Percentile:95% HC: 33.5cm; 38 weeks and 3 days. Percentile:60% AC: 35.1cm; 39 weeks and 0 days. Percentile:<97% FL: 6.9cm; 35 weeks and 2 days. Percentile:12% US EGA: 37 weeks and 6 days US TREY: 12/15/2024 Established TREY: 12/22/2024 EFW: 3383gm, +/-508gm, corresponding to the 84th percentile for the established TREY. BPP Score: Fluid: 2 Breathin Movement: 2 Tone: 2 Total: 8 IMPRESSION: Normal BPP score (8/8). measurements correspond to an EFW at the 84th percentile for the established TREY. Dictated by Roberth Tidwell MD @ 11/30/2024 3:40:46 PM (Electronically Signed)
[2024-11-30 13:41] LABS: Clue Cells No Clue Cells Seen (None Seen); Trichomonas No Trichomonas Seen (None Seen); Yeast No Yeast Seen (None Seen)
[2024-11-30 13:48] LABS: Albumin* 3.8 g/dL (3.3-5.0); Chloride* 104 mmol/L (96-114)
[2024-11-30 13:49] LABS: Potassium* 4.1 mmol/L (3.6-5.1); Sodium* 134 mmol/L (135-149)
[2024-11-30 13:51] LABS: Alanine Aminotransferase* 72 U/L (4-35); Alkaline Phosphatase* 178 U/L (40-150); Anion Gap 7 mEq/L (7-15); Aspartate Amino Transferase* 43 U/L (12-35); Bilirubin Total* 0.4 mg/dL (0.1-1.5); Blood Urea Nitrogen* 9 mg/dL (5-24); Carbon Dioxide* 23 mmol/L (20-32); Creatinine* 0.5 mg/dL (0.5-1.5); Estimated Glomerular Filt Rate 126 ml/min; Glucose* 104 mg/dL (60-115); Total Protein* 6.9 g/dL (6.0-8.3)
[2024-11-30 13:52] LABS: Calcium* 9.5 mg/dL (8.4-10.6)
[2024-11-30] MEDS: LACTATED RINGERS 1000 ML 1,000 ML 500 ML IV (13:56)
--- NOTE | 2024-11-30 14:05 | PM.OBHPLI ---
OB - H&P: HPI Labor/Induction History of Present Illness Time Seen by Provider: 14:05 Date Seen: 11/30/24 Chief Complaint: The patient is a 34 year old 2 para 1001 at 36 6/7 weeks gestation and TREY: [birth year] by first trimester US, who presents with concerns for itchiness on palms and soles of feet. Chief complaint: Maternity : 2 Para: 1 Narrative: Tarun Tee is a 34 year old female with history of cholestasis of and was concerned that symptoms last night were very consistent with her previous experience. Patient states that she has also been noticing more frequent uterine contractions, but denies abnormal vaginal discharge or increased pelvic pressure. Baby has been moving well. Patient is seen at triage and upon lab work completion liver enzymes noted to be elevated. Normal blood pressures. Specific Issues/Plans [id number] Spouse: Abrahan #History of HELLP syndrome, normotensive Baseline pre E labs: All normal with the exception of pr/cr ratio: 0.88 24 urine for protein: 455mg 81 mg of aspirin starting at 12 weeks [facility] referral: level 2 US referral placed 06/18/24: Nephology referral placed Nephrology recommended checking BP weekly, 24hr urine for protein Q2 months (they are ordering). 10/07: PC Ratio increased to 1.8 from 0.4 prior. BP in nephrology clinic was normal 10/13: Preeclampsia labs: hgb 10.9; plts 158 K; AST 21; ALT 18; BUN 8; Creat 0.5. # history of cholestasis Baseline AST/ALT: normal 10/13/24 30w: itching on the soles of her feet 10/13/24: AST 21; ALT 18; Bile acids 3 11/14/24 itching on hands and feet. AST 26, ALT 26, Bile acids [] # depression and anxiety Sertraline 100 mg. Followed by psychiatry # ADHD Discontinued Adderall with positive test. 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 Hgb 10.7 at 28 weeks Start ferrous sulfate 325 mg p.o. q.i.d. day Discontinue vitamin Recheck hemoglobin at 34 weeks: 10.7, ferritin 10.9: increase FeSO4 to 2 tablet QOD. Imaging: LvL 2US 08/01/2024: David. Breech. Post placenta, no previa, 3 vessel cord, SDP: 5.8cm. EFW 32%, Normal anatomy survey except limited visualized of the stomach. F/U US was scheduled in 3 weeks to reassess the stomach. 08/22/2024: EFW: 541gm, 1#3oz, 57%. SDP: 5.5cm. anatomy that was previously suboptimally seen appeared to be within normal limits. Immunizations: Flu: 10/01/2024 Tdap:10/13/24 RSV: 10/27/2024 Covid: Declined History of Present Dating criteria: based on 1st trimester US only care: good care Ultrasounds: normal 1st trimester US and normal mid trimester US complications comment: History intrahepatic cholestasis, HELLP Medical complications: psychiatric (anxiety/depression) and other (Proteinuria ) Labs Blood type: B (+) positive Rubella: immune RPR/VDLR: nonreactive GBS status: negative HBsAG: negative Review of Systems Status of ROS: Reports: 10 or more systems reviewed and unremarkable except as noted in History and below Meds Home Medications and Allergies Home Medications ?Medication ?Instructions ?Recorded ?Confirmed ?Type magnesium 250 mg tablet 250 mg PO QDAY 08/09/23 11/30/24 History acetaminophen 500 mg tablet 500 mg PO Q6H PRN 05/15/24 11/30/24 History (Tylenol Extra Strength) docusate sodium 50 mg capsule 50 mg PO QDAY 05/15/24 11/30/24 History (Stool Softener) aspirin 81 mg tablet,delayed 81 mg PO QDAY 06/12/24 11/30/24 History release (Adult Aspirin Regimen) sertraline 150 mg capsule 200 mg PO QDAY 06/12/24 11/30/24 History Allergies Allergy/AdvReac Type Severity Reaction Status Date / Time No Known Drug Allergies Allergy Verified 11/30/24 12:52 OB - H&P: Exam Physical Exam: Vital signs: Temp Pulse Resp BP Pulse Ox 97.6 F 80 16 114/59 L 98 11/30/24 13:00 11/30/24 12:40 11/30/24 13:00 11/30/24 12:40 11/30/24 14:04 Narrative: Vitals Reviewed Constitutional:? Alert and oriented x3 HEENT:? Normocephalic, atraumatic Neck:? Supple Lungs:? Clear to auscultation bilaterally Heart:? Regular rate and rhythm, no murmur, rub or gallop Abdomen:? Soft, nontender, and gravid. Vertex by Franco's, confirmed with cervical exam. Extremities:? No edema or erythema Cervix: 1.5 cm/70%/1station/vertex NST: 145 bpm/moderate variability/positive accelerations/2 late decelerations and 1 deep variable-resolved with position changes and IVFs/irregular contractions OB - Results Labs Labs: Short CBC 11/30/24 Range/Units 13:17 WBC 8.19 (4.50-11.00) K/uL Hgb 11.0 L (12.0-16.0) gm/dL Hct 32.7 L (33.0-51.0) % Plt Count 140 (140-440) K/uL BMP 11/30/24 13:17 Sodium 134 L Potassium 4.1 Chloride 104 Carbon Dioxide 23 BUN 9 Creatinine 0.5 Glucose 104 Calcium 9.5 Liver Function 11/30/24 Range/Units 13:17 Total Bilirubin 0.4 (0.1-1.5) mg/dL AST 43 H (12-35) U/L ALT 72 H (4-35) U/L Alkaline Phosphatase 178 H (40-150) U/L Albumin 3.8 (3.3-5.0) g/dL OB - Problem Based A/P Additional Plan (1) Cholestasis of : Status: Acute Plan: History of ICP, itchiness of palms and sole of feet that feels different from previous evaluation this . Transaminitis. After discussion of risks vs benefits patient is 37 weeks tomorrow findings most consistent with ICP, category 2 NST, recommendation was given for IOL. Patient agrees, she is concerned about risk of stillbirth in the setting of ICP. Plan Admit for IOL, cook catheter placed, will plan to start IV Oxytocin at midnight. GBS negative no need for antibiotic prophylaxis. Candidate for pain management as needed. Close monitoring of vital signs.
[2024-11-30] MEDS: CALCIUM CARBONATE 500 MG CHEW PO (15:51)
[2024-11-30] MEDS: MORPHINE 10 MG/ML inj IM (17:44)
[2024-11-30] MEDS: hydrOXYzine pamoate 25 MG CAPSULE 100 MG PO (17:44)
[2024-11-30] MEDS: SERTRALINE 100 MG TABLET 200 MG PO (22:03)
[2024-12-01] VITALS (71 sets, daily range): BP systolic 82–119; BP diastolic 46–74; PULSE 57–93; RESP 16–18; TEMP 36.3–37.2; O2SAT 97–100
[2024-12-01] MEDS: OXYTOCIN 30 unit/500 ML in NS 30 UNIT/500 ML BAG IVPB (00:44)
[2024-12-01] MEDS: CALCIUM CARBONATE 500 MG CHEW PO (02:12)
[2024-12-01] MEDS: LACTATED RINGERS 1000 ML 1,000 ML 125 ML IV ×2 (05:14→08:18)
[2024-12-01 07:17] LABS: Basophils Absolute Auto 0.01 K/uL (0.00-0.30); Basophils Percent Auto 0.1 % (0.0-3.0); Eosinophils Absolute Auto 0.05 K/uL (0.00-0.50); Eosinophils Percent Auto 0.6 % (0.0-7.0); Hematocrit 33.7 % (33.0-51.0); Hemoglobin* 11.2 gm/dL (12.0-16.0); Immature Granulocytes Abs Auto 0.02 K/uL (0.00-0.30); Immature Granulocytes Pct Auto 0.2 %; Lymphocytes Percent Auto 18.9 % (20-44); Mean Corpuscular HGB Conc 33 gm/dL (32-36); Mean Corpuscular Hemoglobin 29 pg (26-34); Mean Corpuscular Volume 88 fL (80-100); Monocytes Percent Auto 7.1 % (0.0-11.0); Neutrophils Percent Auto 73.1 % (42.0-72.0); Platelet Count* 118 K/uL (140-440); RDW Coefficient of Variation % 13.4 % (11.5-15.5); Red Blood Count 3.85 m/uL (4.00-5.20); White Blood Count* 8.57 K/uL (4.50-11.00)
[2024-12-01 07:24] LABS: Slide Review Reflex No
[2024-12-01 07:33] LABS: Aspartate Amino Transferase* 37 U/L (12-35); Creatinine* 0.5 mg/dL (0.5-1.5); Est. Creatinine Clearance* 125.39; Estimated Glomerular Filt Rate 126 ml/min
[2024-12-01 07:34] LABS: Alanine Aminotransferase* 67 U/L (4-35); Blood Urea Nitrogen* 9 mg/dL (5-24)
[2024-12-01] MEDS: LIDOCAINE 2% (PF) 5 ML VIAL EPIDURAL (07:52)
[2024-12-01] MEDS: ROPIVACAINE 0.2% 100 ml 100 ML 10 MG EPIDURAL (08:07)
--- NOTE | 2024-12-01 08:12 | PM.ANBPRC ---
[facility] Medical History (Updated 11/30/24 @ 14:15 by Arianne John MD) Dyslipidemia ?E78.5 - Hyperlipidemia, unspecified (ICD-10) Alcohol abuse (~2009) ?F10.10 - Alcohol abuse, uncomplicated (ICD-10) History of vaginal delivery History of abnormal cervical Pap smear (03/31/19) ?Z87.42 - Personal history of other diseases of the female genital tract (ICD-10) Anxiety ?F41.9 - Anxiety disorder, unspecified (ICD-10) History of hemolysis, elevated liver enzymes, and low platelet (HELLP) syndrome (02/2021) ?Z87.59 - Personal history of other complications of , childbirth and the puerperium (ICD-10) Acne ?L70.9 - Acne, unspecified (ICD-10) Hypersomnolence ?G47.10 - Hypersomnia, unspecified (ICD-10) Surgical History Second degree perineal laceration during delivery ?O70.1 - Second degree perineal laceration during delivery (ICD-10) Family History Mother Depression Social History Narrative: , 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 Nonsmoker Alcohol use: 6/week , no alcohol use in No drug use Exercise 5 times a week yoga and walking What is your current living situation?: I presently have a place to live Problems where you live: no known problems In the past 12 months, utilities in danger of being shut off: no In past 12 months, lack of transportation kept you from medical appts, meetings, work, or getting things needed for daily living: no In the past 12 mos, have been you worried that your food would run out before you had money to buy more?: never true In the past 12 mos, the food you bought just didn't last and you didn't have money to buy more?: never true Smoking Status: Never smoker How often does anyone, including family, friends and others, physically hurt you: never How often does anyone, including family, friends and others, insult or talk down to you: never How often does anyone, including family, friends and others, threaten you with harm: never How often does anyone, including family, friends and others, scream or curse at you: never Meds Home Medications and Allergies Home Medications ?Medication ?Instructions ?Recorded ?Confirmed ?Type magnesium 250 mg tablet 250 mg PO QDAY 08/09/23 11/30/24 History acetaminophen 500 mg tablet 500 mg PO Q6H PRN 05/15/24 11/30/24 History (Tylenol Extra Strength) docusate sodium 50 mg capsule 50 mg PO QDAY 05/15/24 11/30/24 History (Stool Softener) aspirin 81 mg tablet,delayed 81 mg PO QDAY 06/12/24 11/30/24 History release (Adult Aspirin Regimen) sertraline 150 mg capsule 200 mg PO QDAY 06/12/24 11/30/24 History Allergies Allergy/AdvReac Type Severity Reaction Status Date / Time No Known Drug Allergies Allergy Verified 11/30/24 12:52 Results Labs Labs: Laboratory Results - last 24 hr 11/30/24 11/30/24 12/01/24 13:10 13:17 07:00 WBC 8.19 8.57 RBC 3.82 L 3.85 L Hgb 11.0 L 11.2 L Hct 32.7 L 33.7 MCV 86 88 MCH 29 29 MCHC 34 33 RDW Coeff of Elizabet 13.2 13.4 Plt Count 140 118 L Neut % (Auto) 72.5 H 73.1 H Lymph % (Auto) 19.0 L 18.9 L [place] % (Auto) 7.7 7.1 Eos % (Auto) 0.4 0.6 Baso % (Auto) 0.2 0.1 Neut # (Auto) 5.90 6.30 Lymph # (Auto) 1.60 1.60 [place] # (Auto) 0.60 0.60 Eos # (Auto) 0.03 0.05 Baso # (Auto) 0.02 0.01 Abs Immat Gran (auto) 0.02 0.02 Imm/Tot Granulo (auto) 0.2 0.2 Sodium 134 L Potassium 4.1 Chloride 104 Carbon Dioxide 23 Anion Gap 7 BUN 9 9 Creatinine 0.5 0.5 Estimated Creat Clear 125.39 Estimated GFR 126 126 Glucose 104 Calcium 9.5 Total Bilirubin 0.4 AST 43 H 37 H ALT 72 H 67 H Alkaline Phosphatase 178 H Total Protein 6.9 Albumin 3.8 Vaginal Trichomonas No Trichomonas Seen Vaginal Yeast No Yeast Seen Vaginal Clue Cells No Clue Cells Seen Blood Type B Positive Antibody Screen NEGATIVE Vital Signs Vital Signs: Last Vital Signs Temp 97.8 F 12/01/24 07:43 Pulse 76 12/01/24 08:09 Resp 16 12/01/24 07:43 BP 95/62 12/01/24 08:09 Pulse Ox 98 12/01/24 08:10 Weight: 72.076 kg Height: 157.48 cm Anesthesia Procedures Epidural Insertion Patient Location: OB Start Time: 07:45 Stop Time: 08:15 Start Date: 12/01/24 Stop Date: 12/01/24 Reason for Block: primary anesthetic Patient Position: sitting Performed By: Victor M Browning Preanesthetic Checklist: IV checked, risks and benefits discussed, surgical consent, monitors and equipment checked, pre-op evaluation, timeout performed and anesthesia consent Prep: chlorhexidine gluconate Monitoring: blood pressure monitoring, monitoring analyst, continuous pulse oximetry and heart rate Approach: midline Vertebral Space: lumbar (1-5) Needle Type: Tuohy needle Injection Technique: continuous catheter (catheter) Needle gauge: 17 Needle Length (cm): 10 cm Needle Insertion Depth (cm): 4 Catheter Gauge: 19 Catheter Type: multi-orifice Catheter at skin depth (cm): 9 Test Dose Result: negative and lidocaine 1.5% with epinephrine 1 to 200,000
[2024-12-01] MEDS: PHENYLEPHRINE 100 MCG/ML SYRINGE IVP ×3 (08:17→08:40)
[2024-12-01] MEDS: IBUPROFEN 600 MG TABLET PO ×2 (11:31→19:05)
[2024-12-01 14:48] LABS: Creatinine Urine 32.9 mg/dL
[2024-12-01 14:55] LABS: Protein Creatinine Ratio Urine 0.67 (0-0.19); Total Protein Urine 22 mg/dL
[2024-12-01 15:19] LABS: Hematocrit 33.7 % (33.0-51.0); Hemoglobin* 11.2 gm/dL (12.0-16.0); Mean Corpuscular HGB Conc 33 gm/dL (32-36); Mean Corpuscular Hemoglobin 29 pg (26-34); Mean Corpuscular Volume 88 fL (80-100); Platelet Count* 117 K/uL (140-440); Red Blood Count 3.83 m/uL (4.00-5.20); White Blood Count* 8.64 K/uL (4.50-11.00)
[2024-12-01 15:20] LABS: Slide Review Reflex No
[2024-12-01] MEDS: DOCUSATE SODIUM 100 MG CAPSULE PO (16:04)
[2024-12-01] MEDS: ACETAMINOPHEN 500 MG TABLET 1000 MG PO ×2 (16:04→21:57)
--- NOTE | 2024-12-01 19:30 | W.PM.VAGDEL1 ---
Procedure Delivery date: 12/01/24 Procedure Done: Global Events: Other (Induction of labor due to suspected intrahepatic cholestasis of ) Intrapartal Events: Labor Induction Delivery augmentation: rupture of membranes Delivery monitor: external FHT and internal FHT Route of delivery: vacuum extraction Indication for instrumentation: nonreassuring FHR tracing Laceration description: Perineal - 1st Degree Delivery repair: Vicryl Estimated blood loss (mL): 50 Anesthesia type: Epidural Disposition: floor Narrative: The patient is a 34 year-old G 2 P 1 admitted on 11/30/2024 at 36 and 6/7 weeks gestation due to suspected intrahepatic cholestasis of . GBS negative Labor Analgesia: Epidural Pitocin: For labor induction per protocol and 3rd stage management AROM: 12/01/2024 at 0852, with clear fluid Complete: 12/01/2024 at 1043 Pushin12/01/2024 at 1049 heart tones during second stage were category 2. Shortly after AROM, patient had recurrent variables due to rapid progression of dilation. Pitocin turned off at 1 point and was never resumed for augmentation of labor. When she was complete, pushing began expeditiously. Patient initially had great descent moving station from +1 to +3 with 2 pushes. After that, she lost strength and her pushes became uncoordinated. At this time, there were recurrent late decelerations down to the 90s that were slower to recover with each subsequent contractions. There were also periods of marked variability. Due to this, I recommended vacuum assisted vaginal delivery. We discussed risks, benefits, and alternatives to the proposed plan. Main risks to being scalp injuries(hematomas, intracranial hemorrhage etc) and main maternal risk being worst perineal tears and hemorrhage. These risks are minimized by appropriate patient selection and placement. She has near the as she is low enough station for an operative delivery. Additionally, fetus is straight OA. I do not anticipate prolonged application of vacuum. She verbally consented to a vacuum assisted vaginal delivery. head was confirmed to be OA with 100% effacement and +3 station. In between contractions, Kiwi vacuum was placed 2 cm anterior to the posterior fontanel. Quick sweep confirmed there was no vaginal tissue within the kiwi applicator. With patient's next contraction, the vacuum was inflated to the green zone and gentle downward pressure was used to assist with bringing the head to and subsequent delivery. Number of pull(s):1 Number of pop-offs: 0 At 1103 a viable male infant delivered in vertex OA presentation over intact via vacuum assisted vaginal delivery. The 's body was delivered in the usual manner without difficulty. The infant was placed on maternal abdomen. The cord was clamped and cut after a 30-60 second delay. The nose and mouth were bulb suctioned. Infant weight: pending. 8 at 1 minute and 6 at 5 minutes and 7 at 10 minutes. Shoulder dystocia: No. Nuchal cord: No Placenta delivered spontaneously and complete at 1105 with a 3-vessel cord. Placenta examined and noted to be complete. The cervix and vagina were inspected for lacerations, and 1st degree perineal laceration was noted. Laceration(s): 1st degree, repaired with 2-0 vicryl Complications: None Estimated blood loss: 50 cc Sponge and needles counts are correct. Mother and were stable at the time of this note. [place] Gender: Male total score - 1 minute: 8 total score - 5 minute: 6 total score - 10 minute: 7
[2024-12-01] MEDS: SERTRALINE 100 MG TABLET 200 MG PO (21:57)
[2024-12-02] MEDS: IBUPROFEN 600 MG TABLET PO ×4 (00:45→19:30)
[2024-12-02 00:59] VITALS: BP 102/67; PULSE 55; RESP 16; TEMP 36.4; O2SAT 96
[2024-12-02] MEDS: ACETAMINOPHEN 500 MG TABLET 1000 MG PO ×3 (03:43→16:14)
[2024-12-02 05:00] VITALS: BP 111/67; PULSE 62; RESP 16; TEMP 36.6; O2SAT 97
[2024-12-02] MEDS: DOCUSATE SODIUM 100 MG CAPSULE PO (07:24)
--- NOTE | 2024-12-02 07:55 | PM.OBPNVD1 ---
OB - PN:Subj Subjective Date Seen: 12/02/24 Narrative: Tarun is a 34 y.o. who was admitted to [facility] & [facility] for induction of labor for suspected cholestasis.? She had an uncomplicated NVD.? ?? The patient feels well.? The pain is well controlled with current medications.? She has no new complaints.? She is bottle feeding and reports things are going well.?Her baby has been closely monitored and currently is on oxygen and has an IV running. At this time baby will stay here but there has been talk of needing to transfer if worsening status. the patient has done well.? Vitals have been stable.? She has remained afebrile.? Has a good appetite, is tolerating a general diet.? She is voiding without difficulty.? She is passing gas and has not had a bowel movement.? She is ambulating and denies any dizziness.? Has Small amount of rubra lochia.? OB - PN: Obj Exam Physical Exam: Vital signs: Temp Pulse Resp BP Pulse Ox O2 Del Method 97.8 F 62 16 111/67 97 Room Air 12/02/24 05:00 12/02/24 05:00 12/02/24 05:00 12/02/24 05:00 12/02/24 05:00 12/02/24 05:00 Narrative: GENERAL APPEARANCE:? normal affect, alert, no distress? MOOD:? appropriate? HEENT: normocephalic, neck supple, full ROM? CHEST:? Symmetrical chest wall movement.? Normal respiratory effort.? Clear to auscultation ? HEART:? regular rate and rhythm? ABDOMEN:? soft, non-tender. Uterine fundus is firm, at Umbilicus, Midline and is appropriate for the stage of recovery.? Bowel sounds present.? PERINEUM:? mild edema of the perineum, there is a 1st degree laceration that is healing well.? EXTREMITIES:? normal and no edema? OB - PN: Obj Data Labs Labs: Laboratory Results - last 24 hr 12/01/24 12/01/24 12/02/24 07:00 14:02 06:14 WBC 8.64 RBC 3.83 L Hgb 11.2 L 10.0 L Hct 33.7 MCV 88 MCH 29 MCHC 33 Plt Count 117 L Urine Creatinine 32.9 Protein/Creatinin Ratio 0.67 H Urine Total Protein 22 Blood Type B Positive Antibody Screen NEGATIVE OB - PN: A/P Delivery Assessment and Plan (1) Cholestasis of : Status: Acute (2) care and examination of lactating mother: Status: Acute Plan day: 1 Plan: routine care Comments: G 2 P 2 status post uncomplicated NVD??? 1.? Continue route PP cares? 2.? .? May see if desired? 3.? Anticipate discharge home tomorrow?
[2024-12-02 08:18] VITALS: BP 105/70; PULSE 76; RESP 16; TEMP 36.6; O2SAT 96
--- NOTE | 2024-12-02 10:44 | PM.ANPOST ---
Post Anesthesia Note Post Anesthesia Note Patient seen: Inpatient Respiratory Status: adequate Cardiovascular Status: adequate Mental Status: baseline Pain: adequate Temp: baseline Anesthetic awareness: N/A Complications: none Follow care: none
[2024-12-02 12:47] VITALS: BP 106/67; PULSE 61; RESP 16; TEMP 36.6; O2SAT 97
[2024-12-02 16:44] LABS: Bile Acids, Total 8 umol/L (0-10)
[2024-12-02] MEDS: SERTRALINE 100 MG TABLET 200 MG PO (20:57)
[2024-12-02 21:01] VITALS: BP 109/70; PULSE 60; RESP 16; TEMP 36.4; O2SAT 97
[2024-12-03 02:07] LABS: Rapid Plasma Reagin (RPR) Non Reactive (Non Reactive)
--- NOTE | 2024-12-03 07:58 | PM.OBDSVD1 ---
DS: Providers Provider Date Seen: 12/03/24 Date of admission: 11/30/24 14:07 Primary care physician: Kymberly Mustafa MD Admitting Clinician: Arianne John MD Attending Physician on discharge: Maral GILL Date of Discharge: 12/03/24 DS: Diagnosis Discharge Diagnosis (1) care and examination: Status: Acute (2) History of cholestasis during : Status: Acute (3) Cholestasis of : Status: Acute (4) Anxiety: Status: Chronic Problem details: Sees Psychiatry (5) ADD (attention deficit disorder): Status: Acute Problem details: Sees psychiatrist (6) Gestational thrombocytopenia without hemorrhage: Status: Acute (7) Proteinuria: Status: Acute (8) History of HELLP syndrome, currently : Status: Acute Exam Narrative: Exam Narrative: GENERAL APPEARANCE:? normal affect, alert, no distress MOOD:? appropriate CHEST:? clear to auscultation HEART:? regular rate and rhythm ABDOMEN:? soft, non-tender the uterine fundus is 2 finger breadths below Umbilicus, Midline and is appropriate for the stage of recovery. PERINEUM:? minimal edema of the perineum, there is a Perineal Laceration repair with minimal edema, well approximated and no erythema seen. EXTREMITIES:? normal and no edema Const: Vital Signs, click to edit/add: Vital Signs - 24 hr 12/02/24 08:18 12/02/24 12:47 12/02/24 21:01 Temperature 97.8 F 97.8 F 97.6 F Pulse Rate [Pulse Oximeter] 76 61 60 Respiratory Rate 16 16 16 Blood Pressure [Le ft Arm] 105/70 106/67 109/70 Pulse Oximetry 96 97 97 Oxygen Delivery Me thod Room Air Room Air Room Air OB - DS: Summary Hospital Course Hospital Course: Discharge Subjective? Tarun is a 34 y.o. G 2 P2002 who was admitted to [facility] & [facility] for IOL for cholestasis.. Elevated liver enzymes noted with normal bile salts. Proteinuria was also found without elevated blood pressures. It is also noted there is a mild drop in platelets to 117.? She had a NVD that was uncomplicated. The patient feels well.? The pain is well controlled with current medications.? She has no new complaints.? She is bottle feeding and reports things are going well. but baby will be staying for further support.. the patient has done well.? Vitals have been stable.? She has remained afebrile.? Has a good appetite, is tolerating a general diet.? She is voiding without difficulty.? She is passing gas and has not had a bowel movement.? She is ambulating and denies any dizziness.? Has small amount of rubra lochia. She is unsure of choice of contraception . Will discuss this at her 2 week appt. ?She reports no itching. ?? Problems: low platelets without concern, Hx anxiety and PP depression. ? ?? plan:? Discharge home with baby.? Follow up in 2 weeks and 6 weeks.? Hgb 10.0. Iron supplement ordered orally every other day?and encouraged to continue one tablet by mouth every other day. Labs WNL or stable with trending? ?Call for signs/symptoms of preeclampsia? Peripartum Data delivery method: Vaginal Laceration description: Perineal - 1st Degree (repaired) Episiotomy description: None complications: none Gender: Male Discharge Plan: Further hosptial stay for support Status at Discharge Overall status at discharge: patient is progressing back to baseline Time Spent with Patient Time attestation: Total time spent providing and/or coordinating discharge services: Time spent: Less than 30 minutes Discharge Plan Discharge Disposition: Home, Self-Care Date of Admission: 11/30/24 14:07 Attending Provider on Discharge: Brittany Vaughan Primary Care Provider: Kymberly Mustafa Condition: Stable Anticipated Discharge Date/Time: 12/03/24 07:54 Discharge Medications: Continued magnesium 250 mg tablet 250 mg PO QDAY Stool Softener 50 mg capsule 50 mg PO QDAY sertraline 150 mg capsule 200 mg PO QDAY Discontinued acetaminophen [Tylenol Extra Strength] 500 mg tablet 500 mg PO Q6H PRN aspirin [Adult Aspirin Regimen] 81 mg tablet,delayed release (DR/EC) 81 mg PO QDAY clobetasol 0.05 % ointment 1 applic topical QHS Qty: 45 3RF No Action (DME) Blood Pressure Cuff Misc See Rx Instructions .Route Qty: 1 0RF Rx Instructions: As directed Discharge Orders: Discharge Order (Routine); Ordered 12/03/24 Ordered By: Brittany Vaughan Patient Education: OB Care, OB Vaginal/Bottle Feeding Additional Instructions: Discharge instructions were reviewed with the patient including signs and symptoms of infection and home going medications Nothing vaginally for 6 weeks: no tampons or intercourse Do not drive while taking narcotic pain medication(s) Off Work or School for 8 weeks Symptoms to report to doctor: Bleeding that saturates more than one pad per hour Passing clots larger than the size of a golf ball Pain not relieved by prescribed medication Fever above 100.4 degrees Fahrenheit A foul vaginal odor Difficulty in emotions, mood, and functions Thoughts of hurting yourself and/or Painful, reddened area in your breast Any drainage, redness, or tenderness in your IV/epidural site Severe headache that doesn't improve after taking medications Changes in vision, including temporary loss of vision, blurred vision, and/or light sensitivity Upper abdominal pain (usually under ribs on the right side) Decrease in urination or painful, frequent urinating Chest pain Shortness of breath Tenderness or pain with redness and/swelling in the calf(s) of your leg Optional 2-week visit: discuss feeding concerns, review control options and screen for anxiety/depression. 6-week visit for an annual exam. consultation services are available to all mothers and babies for the first year after delivery.? To make an appointment, please call [phone]. For pain control of perineum, breast and pelvic pain, take 600 mg Ibuprofen every 6 hours as needed by mouth or 1000 mg acetaminophen (Tylenol) every 6 hours by mouth as needed. You can alternate these so you are taking something every 3 hours as needed. A heating pad can also be used for your abdomen or breasts. You may also take docusate sodium up to twice daily to soften your stools and help to prevent constipation. You may wean off of it when your stools return to normal.?Continue iron one tablet, every other day. Activity Level: Activity as Tolerated and No strenuous activity Discharge Diet: Regular Follow Up Appointments: [facility] [Provider Group] Forms: [employer] Info Instructions
[2024-12-03 08:23] VITALS: BP 108/71; PULSE 79; RESP 16; TEMP 36.5; O2SAT 97
== END 2024-12-03 10:58 | disposition home or self-care (01) | DRG 560 ==
LOC: OB OUT 14:07 → OB 14:08
PROVIDERS: Obstetrics & Gynecology; Admitting Provider Obstetrics & Gynecology; PCP Family Medicine; Visit Provider Obstetrics & Gynecology
DX: O26.643 Intrahepatic cholestasis of pregnancy, third trimester (principal); K83.1 Obstruction of bile duct; O76 Abnormality in fetal heart rate and rhythm complicating labor and delivery; O99.344 Other mental disorders complicating childbirth; F41.9 Anxiety disorder, unspecified; F32.A Depression, unspecified; F90.9 Attention-deficit hyperactivity disorder, unspecified type; O99.02 Anemia complicating childbirth; D64.9 Anemia, unspecified; Z87.59 Personal history of other complications of pregnancy, childbirth and the puerperium; O75.89 Other specified complications of labor and delivery; L90.0 Lichen sclerosus et atrophicus; N90.4 Leukoplakia of vulva; O72.3 Postpartum coagulation defects; D69.6 Thrombocytopenia, unspecified; O70.0 First degree perineal laceration during delivery; O12.14 Gestational proteinuria, complicating childbirth; Z3A.36 36 weeks gestation of pregnancy; Z37.0 Single live birth; O26.893 Other specified pregnancy related conditions, third trimester; L29.81 Cholestatic pruritus
CPT/HCPCS: 01967; 36415; 59200; 76816; 76819; 80053; 82239; 82565; 82570; 84156; 84450; 84460; 84520; 85018; 85025; 85027; 86592; 86850; 86900; 86901; 87210; 88307; A9270; J2270; J2371; J2795; J7120

== ENCOUNTER 2024-12-10 22:41 | Emergency (ER) | payer BC, SELFPAY ==
--- OUTSIDE RECORDS SUMMARY | 2024-12-10 22:43 | XMS_ITS | Clinical Summary ---
Author Organization [facility] Address [facility] [place] [address] Care Team Providers Care Parts Cleaner Name Role Phone Kymberly Mustafa MD Primary Care Provider + Social History Tobacco Use Types Packs/Day Years [...] PREVENTIVE VISIT 02/24/2023 02/25/20 22, 05/06/2020, 03/31/2019 MATERNAL SCREENING DISCUSSION 05/19/2024 COVID-19 Vaccine ( season) 2024 05/31/2021, 05/10/2021 INFLUENZA VACCINE (#1) 2024 3, 07/28/2021, 07/27/2020, Additional history exists OBGCT (OB) 08/25/2024 TDAP () IMMUNIZATION 09/15/2024 PHQ-2 (once per calendar year) 2024 GROUP B STREP SCREENING 11/17/2024 DTAP/TDAP/TD IMMUNIZATION (8 - Td or Tdap) 01/07/2031 01/07/2021, 11/23/2010, 08/27/2003, Additional history exists ZOSTER IMMUNIZATION (1 of 2) 2040 HEPATITIS B IMMUNIZATION Completed 003, 04/02/2003, 01/29/2003 HPV IMMUNIZATION Completed 01/29/2008, 12/2006, 09/21/2007, Additional history exists MENINGITIS IMMUNIZATION Aged Out 05/11/2010 No l onger eligible based on patient's age to complete this topic Pneumococcal Vaccine: Pediatrics (0 to 5 Years) and At-Risk Patients (6 to 49 Years) Aged Out No longer eligible based on patient's age to complete this topic RSV VACCINE (No Doses Required) Completed Insurance [facility] [place] [address] Care Teams Parts Cleaner Relationship Specialty Start Date End Date Kymberly Mustafa MD [facility] & [address] [address] (work) PCP - General Family Medicine 05/22/24
--- OUTSIDE RECORDS SUMMARY | 2024-12-10 22:43 | XMS_ITS | Clinical Summary ---
Author Organization [facility] Address [address] [place] [address] Care Team Providers Care Bus Company Manager Name Role Phone Siri Gaines DO Primary Care Provider [phone] Source Comments You are receiving this document as you are listed as the primary care provider,follow-up provider, or the patient has been referred to you for consultation.This is in compliance with the Medicare and[facility] E[facility] Incentive Program,which states Providers who transition their patient to another setting of careor provider of care or refers their patient to another provider of care shouldprovide summary care record for each transition of care or referral. [facility] Allergies No known active allergies Medications Docusate Sodium (DSS) 100 MG Active cholecalciferol (VITAMIND3) 50 MCG (1999) tablet Daily Act joaquín sertraline (ZOLOFT) 100 MG tabletIndications: Generalized anxiety disorder (HRC) Take 1 Tablet (100 mg) by mouth daily. 90 Tablet 3 2 Active hydrOXYzine HCl (ATARAX) 25 MG tabletIndications: Generalized anxiety disorder (HRC) Take 1 Tablet (25 mg) by mouth at bedtime as needed for Anxiety. 90 Tablet 3 2 Active spironolactone (ALDACTONE) 100 MG tabletIndications: Acne, unspecified acne type Take 1 Tablet (100 mg) by mouth daily. 90 Tablet 3 2 Active SPRINTEC 28 0.25-35 MG-MCG tabletIndications: Encounter for contraceptive management, unspecified type Take 1 tablet by mouth once daily 90 Tablet 1 3 Active Active Problems Problem Noted Date Diagnosed Date Hypersomnolence 06/23/2022 Generalized anxiety disorder 07/29/2014 Resolved Problems Problem Noted Date Diagnosed Date Resolved Date Nexplanon in place 07/31/2014 9 Overview (07/31/2016): Removed and replaced 07/31/16 To be removed by 07/31/16 Lot# [id number] Varicella 07/17/2007 07/29/2014 Overview (06/13/2017): LW Onset: [id number] ; Varicella Zoster Other acne 07/13/2007 07/29/2014 Overview (06/13/2017): Acne Vulgaris Immunizations Immunization Administration Dates Next Due 4vHPV (Gardasil) 01/29/2008,09/23/2007, 7 9vHPV (Gardasil 9) 01/29/2008,09/21/2007, 007 DTP 10/04/1994, 2,03/31/1991,1990,1990 Fluzone Qiv Multidose Vial 0 .25 (6-35 Mos) 07/28/2021,07/17/2019,07/18/2018,2016 HepA Adult (19+ yrs) 11/23/2010,05/11/2010 HepB Ped/Adol (0-18 yrs) 08/27/2003,04/02/2003,0 01/29/2003 Hib (ActHIB) 01/14/1992, 1,01/28/1991,1990 Influenza IIV4 (Quadrivalent ) 0.5mL (63051) 09/06/2016 MCV4 (Menactra) 05/11/2010 MMR 04/02/2003,01/14/1992 Pfizer [...] Answer Date Recorded PHQ-2 Score 0 02/24/2022 Comments No Sex and Gender Information Value Date Recorded Sex Assigned at Not on file Legal Sex Female 10:42 PM CDT Gender Identity Not on file Sexual Orientation Not on file Occupation Industry Job Start Date Job End Date Teacher Not on file Not on file Not on file Last Filed Vital Signs Vital Sign Reading Time Taken Comments Blood Pressure 122/83 06/23/2022 2:23 PM CDT Pulse 75 06/23/2022 2:23 PM CDT Temperature 36.8 C (98.2 F) 08/03/2020 2:31 PM CDT pt reported Respiratory Rate 16 10/01/2009 7:59 AM REPORT DEVELOPER Oxygen Saturation - - Inhaled Oxygen Concentration [...] 08/27/2003, 03/22, 01/29/2003 HPV Vaccine Completed 01/29/2008, 06/2008, 09/23/2007, Additional history exists MCV4 Aged Out 05/11/2010 No longer eligi ble based on patient's age to complete this topic HepA Aged Out 11/23/2010, 05/11/2010 No lo nger eligible based on patient's age to complete this topic HIV Screening (Preventive Services) Completed 10/12/2021 (Completed) Hep C Screening (Preventive Services) Completed 06/23/2022 (Completed) Meningococcal B Aged Out No longer el igible based on patient's age to complete this [...] (03/31/2019 1:05 PM CDT) Case Report Pap Case: [id number] Authorizing Provider: Siri Gaines DO Collected: 03/31/2019 01:05 PM Ordering Location: [facility] Received: 03/31/2019 03:26 PM First Screen: Kinza Rivas CT (ASCP) Pathologist: Sharon Alejandre MD Specimen: Pap Test, Routine, Cervix/Endocerv ix 04/02/2019 2:13 PM CDT [facility] Pap Specimen Adequacy Satisfactory for evaluation, endocervical/tr ansformation zone component present. 04/02/2019 2:13 PM CDT [facility] Pap Interpretation Atypical squamous cells of undetermined significance (ASC-US).(A) 04/02/2019 2:13 PM CDT [facility] Gross Description The specimen is received in SurePath fixative and properly labeled. 1 Pap-stained SurePath slide is prepared. 04/02/2019 2:13 PM CDT [facility] Pap Disclaimer The Pap test is a screening test designed to aid in the detection of cervical cancer and its precursor lesions. It is not a diagnostic procedure and should not be used as the sole means of detecting cervical cancer. Both false-positive and false-negative reports may occur. 04/02/2019 2:13 PM CDT [facility] Embedded Images 9 2:13 PM CDT [facility] Other Specimen Type ENTIRE ENDOCERVIX / Unknown 03/31/2019 1:05 PM CDT 03/31/2019 3:26 PM CDT Comment:LMP: No LMP recorded . Siri Gaines DO LAB PATHOLOGY Final Result [facility] [address] [place] [address], [facility] from Last 3 Months or Most Recently Relevant to Health Maintenance Insurance [address] [place] [id number] [facility] [id number] [place] [id number] Care Teams Bus Company Manager Relationship Specialty Start Date End Date Siri Gaines DO [address] [place] [address] [facility] - General 07/27/14
--- OUTSIDE RECORDS SUMMARY | 2024-12-10 22:43 | XMS_ITS | Clinical Summary ---
Author Organization [facility] Address [address] [place] [address] Care Team Providers Care Vehicle Calibration Engineer Name Role Phone Unavailable Primary Care Provider Unavailabl e Source Comments Patient records contain information from all sites at [facility]. For routine questions regarding patient records, call [phone] during business hours, M-F 8:00 AM - 5:00 PM Central Time. Record requests for emergency care only can be directed to [phone] at any time.[facility] Encounters Date Type Department Care Team Description 11/04/2024 10:30 AM DATA SYSTEMS ANALYST Virtual Visit Division of Nephrology and Hypertension in [place], [place] [address] [place] [phone] Darcy Whipple M.D., Ph.D. Proteinuria (Primary Dx) 10/27/2024 Orders Only Division of Nephrology and Hypertension in [place], [place] [address] [place] [phone] External, Ordering Provider, Bertrand 10/07/2024 3:30 PM DATA SYSTEMS ANALYST External Outreach Division of Nephrology and Hypertension in [place], [place] [address] [place] [phone] Darcy Whipple M.D., Ph.D. Proteinuria (Primary Dx) 10/01/2024 Orders Only Division of Nephrology and Hypertension in [place], [place] [address] [place] [phone] External, Ordering ProviderBertrand 09/09/2024 8:30 AM DATA SYSTEMS ANALYST External Outreach Division of Nephrology and Hypertension in [place], [place] [address] [place] [phone] Darcy Whipple M.D., Ph.D. Proteinuria (Primary Dx) [...] Screening 1990 Cervical/Vaginal Cancer Screening 03/31/2022 03/31/2019 COVID-19 Vaccine ( season) 2024 05/31/2021, 05/10/2021 Depression Screening (Annual PHQ-2) 10/22/2024 DTaP,Tdap,and Td Vaccines (9 - Td or Tdap) 10/13/2034 10/13/2024, 01/07/2021, 11/23/2010, Additional history exists IPV Vaccines Completed 10/04/1994, 12/21, 01/28/1991, Additional history exists Hepatitis B Vaccines Completed 08/27/2003, 04/02/2003, 01/29/2003 HPV Vaccines Completed 01/29/2008, 0406/2008, 09/23/2007, Additional history exists Influenza Vaccine Completed 10/01/2024, , 07/28/2021, Additional history exists Pneumococcal vaccine (0-49 years) Aged Out No longer eligible based on patient's age to complete this topic Procedures Procedure Name Priority Date/Time Associated Diagnosis Comments EXT OUTSIDE LAB TESTS Routine 10/27/2024 6:30 AM DATA SYSTEMS ANALYST PROTEIN/CREATININE RATIO, RANDOM, URINE Routine 10/01/2024 9:10 AM DATA SYSTEMS ANALYST from Last 3 Months Results * EXT Outside Lab Tests (10/27/2024 6:30 AM DATA SYSTEMS ANALYST) EXT Miscellaneous See scanned report [facility] 10/27/2024 6:30 AM DATA SYSTEMS ANALYST Narrative [facility] - 10/27/2024 12:36 PM DATA SYSTEMS ANALYST External results verified in Extract by Michelle Jolly on 10/27/2024 at 12:35 PM. us Ordering Provider External Bertrand LAB BLOOD NON AD D-ON Final Result Performing Organization Address [facility] Phone Number [facility] [address] [place] [address], [facility] [phone] * (ABNORMAL) Protein/Creatinine Ratio, Random, Urine (10/01/2024 9:10 AM DATA SYSTEMS ANALYST) EXT Protein, Total, Random, U 21 mg/dL [facility] Ext Protein/Creati nine ratio, Urine 1.83(H) 0 - 0.19 Ratio [facility] EXT Creatinine, U 11.5 mg/dL [facility] 10/01/2024 9:10 AM DATA SYSTEMS ANALYST Narrative [facility] - 10/02/2024 11:42 AM DATA SYSTEMS ANALYST External results verified in Extract by Michelle Jolly on 10/02/2024 at 11:39 AM. us Ordering Provider Santos Thurston LAB URINE ORDERA BLES Final Result Performing Organization Address [facility] [employer] Phone Number [facility] [address] [phone] from Last 3 Months Insurance [facility]
--- OUTSIDE RECORDS SUMMARY | 2024-12-10 22:43 | XMS_ITS | Encounter Summary ---
Author Organization [facility] Address [address] [place] [address] Care Team Providers Care Valve Mechanic Name Role Phone Unavailable Primary Care Provider Unavailabl e Reason for Visit * Appointment Request (Routine) - Closed Specialty Diagnoses / Procedures Referred By Contac t Referred To Contact Nephrology and Hypertension Darcy Whipple M.D., Ph.D. [address] [place] [phone] Phone: tel: fax: Referral ID Status Reason Start Date Expiration Date Visits Re quested Visits Authorized [id number] Closed 10/24/2024 10/24/2025 1 1 Encounter Details Date Type Department Care Team (Latest Contact Info) Description 11/04/2024 10:30 AM PROGRESS CLERK Virtual Visit Division of Nephrology and Hypertension in [place], [place] [address] [place] [phone] Darcy Whipple M.D., Ph.D. [address] [place] [phone] Proteinuria (Primary Dx) Social History Tobacco Use [...] Notes * Darcy Whipple M.D., Ph.D. - 11/04/2024 10:30 AM CST PROGRESS NOTE SUBJECTIVE CHIEF COMPLAINT / REASON FOR VISIT 29 weeks of History of HELLP Proteinuria Phone visit [facility] Visit Location: [facility] HISTORY OF PRESENT ILLNESS Tarun Tee is a 34 y.o. female who is contacted via phone to review her labs. 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 She was found to have proteinuria of 450 mg during her second trimester of this current . A monitoring PCR las month showed 1.8. She did a 24 hr urine to confirm proteinuria, and it is at 650 mg. BP during her OB appointment last week was normal. She remains normotensive when checking her BP athome. She takes aspirin 81 mg daily. OBJECTIVE There were no vitals taken for this visit. Phone visit DIAGNOSTICS I have reviewed available labs in detail with patient. ASSESSMENT / PLAN #1 Proteinuria #2 33 weeks of gestational age Patient is contacted via phone (as per patient's preference) for follow up. Her urine protein in 24 hr urine collection showed 650 mg. LFTs and platelets are normal. She is taking aspirin 81 mg daily, started at 12 weeks. BP is at goal. She continues to monitor it at home. Patient will continue to follow up with her OB team. Her potential expected delivery is December. We will plan to see her after delivery in April to monitor on her proteinuria. Idalia Núñez M.D., Ph.D. RESS CLERK documented in this encounter Plan of Treatment Not on file documented as of this encounter Visit Diagnoses Diagnosis Proteinuria- Primary documented in this encounter
--- OUTSIDE RECORDS SUMMARY | 2024-12-10 22:43 | XMS_ITS | Encounter Summary ---
Author Organization [facility] Address [address] [place] [address] Care Team Providers Care Cnc Service Engineer Name Role Phone Unavailable Primary Care Provider Unavailabl e Encounter Details Date Type Department Care Team (Late st Contact Info) Description 10/27/2024 Orders Only Division of Nephrology and Hypertension in [place], [place] [address] [place] [phone] External, Ordering ProviderBertrand Social History Tobacco Use Types Packs/Day Years Used Date Smoking Tobacco: Never Assessed Dental Answer Date Recorded Dental: Regular Dentist Unknown 06/26/20 24 Comments Unknown Sex and Gender Information Value Date Recorded Sex Assigned at Not on file Legal Sex Female 10:12 AM CDT Gender Identity Not on file Sexual Orientation Not on file documented as of this encounter Plan of Treatment Not on file documented as of this encounter Procedures Procedure Name Priority Date/Time Associated Diagnosis Comments EXT OUTSIDE LAB TESTS Routine 10/27/2024 6:30 AM COLORIST FORMULATOR documented in this encounter Results * EXT Outside Lab Tests (10/27/2024 6:30 AM COLORIST FORMULATOR) EXT Miscellaneous See scanned report [facility] 10/27/2024 6:30 AM COLORIST FORMULATOR Narrative [facility] - 10/27/2024 12:36 PM COLORIST FORMULATOR External results verified in Extract by Michelle Jolly on 10/27/2024 at 12:35 PM. us Ordering Provider Santos Thurston LAB BLOOD NON AD D-ON Final Result [facility] [address] [place] [id number] [phone] documented in this encounter Visit Diagnoses Not on filedocumented in this encounter
[2024-12-10 22:51] VITALS: BP 130/89; PULSE 58; RESP 16; TEMP 38.1; O2SAT 99; BMI 24.0
[2024-12-10 23:00] VITALS: O2SAT 99
--- NOTE | 2024-12-10 23:06 | ED_ITS ---
HPI - General Adult General Chief complaint: Hypertension Stated complaint: 1 week , high BP Time Seen by Provider: 12/10/24 23:05 History of Present Illness HPI narrative: Pt. states she is here for post check, headache for past two days and blood pressure of 150 /90 tonight. States she has taken tylenol and ibuprofen at home with little relief. Rates headache a 12/29. Pt was induced for elevated liver enzymes at 37 weeks on 12/01. Pt has history of HELLP syndrome with previous ( daughter is four years old now). 34-year-old woman presenting to the emergency department with concern of HELLP syndrome or preeclampsia. Headache started yesterday. Had a headache tonight and so checked her blood pressure. Had not apparently checked before that? Was 150 systolic. Called in and OB on-call recommended that present for evaluation. Headache was not particularly relieved with acetaminophen or ibuprofen. No visual changes. Due to concern of hepatic cholestasis in was induced at 37 weeks. Now 1 week vacuum assisted vaginal delivery. Looks like platelets last checked were 117,000. Initially on arrival here noted to have a fever at 100.5. Had been wearing a stocking cap and this was a temporal check. I asked about feeling feverish and notes well have a and just generally feeling warm. Recheck oral temperature is 98.1? Related Data Home Medications ?Medication ?Instructions ?Recorded ?Confirmed magnesium 250 mg tablet 250 mg PO QDAY 08/09/23 11/30/24 docusate sodium 50 mg capsule 50 mg PO QDAY 05/15/24 11/30/24 (Stool Softener) sertraline 150 mg capsule 200 mg PO QDAY 06/12/24 11/30/24 dextroamphetamine-amphetamine 20 12/10/24 mg tablet fluconazole 100 mg tablet 150 mg PO DAILY 12/10/24 12/10/24 Previous Rx's ?Medication ?Instructions ?Recorded miscellaneous medical supply #1 ea 10/08/24 (Blood Pressure Cuff) Allergies Allergy/AdvReac Type Severity Reaction Status Date / Time No Known Drug Allergies Allergy Verified 11/30/24 12:52 Review of Systems Status of ROS: Reports: 6 or more systems reviewed and unremarkable except as noted in History and below [facility] Medical History History of cholestasis during ?Z87.59 - Personal history of other complications of , childbirth and the puerperium (ICD-10) ?Z87.19 - Personal history of other diseases of the digestive system (ICD-10) depression ?F53.0 - depression (ICD-10) Gestational thrombocytopenia without hemorrhage ?O99.119 - Other diseases of the blood and blood-forming organs and certain disorders involving the immune mechanism complicating , unspecified trimester (ICD-10) ?D69.6 - Thrombocytopenia, unspecified (ICD-10) Dyslipidemia ?E78.5 - Hyperlipidemia, unspecified (ICD-10) Alcohol abuse (~2009) ?F10.10 - Alcohol abuse, uncomplicated (ICD-10) History of vaginal delivery History of abnormal cervical Pap smear (03/31/19) ?Z87.42 - Personal history of other diseases of the female genital tract (ICD-10) Anxiety ?F41.9 - Anxiety disorder, unspecified (ICD-10) History of hemolysis, elevated liver enzymes, and low platelet (HELLP) syndrome (02/2021) ?Z87.59 - Personal history of other complications of , childbirth and the puerperium (ICD-10) Acne ?L70.9 - Acne, unspecified (ICD-10) Hypersomnolence ?G47.10 - Hypersomnia, unspecified (ICD-10) Surgical History Second degree perineal laceration during delivery ?O70.1 - Second degree perineal laceration during delivery (ICD-10) Family History Mother Depression Social History Narrative: , 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 Nonsmoker Alcohol use: 6/week , no alcohol use in No drug use Exercise 5 times a week yoga and walking What is your current living situation?: I presently have a place to live Problems where you live: no known problems In the past 12 months, utilities in danger of being shut off: no In past 12 months, lack of transportation kept you from medical appts, meetings, work, or getting things needed for daily living: no In the past 12 mos, have been you worried that your food would run out before you had money to buy more?: never true In the past 12 mos, the food you bought just didn't last and you didn't have money to buy more?: never true Smoking Status: Never smoker Second hand tobacco smoke exposure: No How often do you have a drink containing alcohol: never AUDIT-C Alcohol total score: 0 Non-prescribed substance use: denies use How often does anyone, including family, friends and others, physically hurt you : never How often does anyone, including family, friends and others, insult or talk down to you: never How often does anyone, including family, friends and others, threaten you with harm: never How often does anyone, including family, friends and others, scream or curse at you: never Exam Narrative: Exam Narrative: Pleasant. NAD. Skin is warm and dry. Lower extremities are without edema. Two beat clonus. 2+ DTRs in lower extremities. Abdomen is soft not notably tender. Lungs are clear. Heart in slower rate and regular rhythm. Cranial nerves 2-12 look to be intact. Const: Vital Signs, click to edit/add: Vital Signs - 24 hr 12/10/24 22:51 12/10/24 23:00 12/10/24 23:15 Temperature 100.5 F H 98.1 F Pulse Rate Pulse Rate [Pulse Oximeter] 58 L 55 L Respiratory Rate 16 Blood Pressure Blood Pressure [Le ft Upper Arm] 130/89 134/93 H Pulse Oximetry 99 99 Oxygen Delivery Me thod Room Air 12/10/24 23:16 12/10/24 23:31 Temperature Pulse Rate 58 L 54 L Pulse Rate [Pulse Oximeter] Respiratory Rate 20 20 Blood Pressure 134/93 H 131/90 H Blood Pressure [Le ft Upper Arm] Pulse Oximetry 97 99 Oxygen Delivery Me thod Documenting provider has reviewed patient's vital signs: yes Course Vital Signs Vital signs: Initial Vital Signs Temperature 100.5 F H 12/10/24 22:51 Temperature Source Temporal Artery Scan 12/10/24 22:51 Pulse Rate 58 L 12/10/24 22:51 Respiratory Rate 16 12/10/24 22:51 Blood Pressure 130/89 12/10/24 22:51 Blood Pressure Mean 102 12/10/24 22:51 Blood Pressure Position Supine 12/10/24 22:51 Pulse Oximetry 99 12/10/24 22:51 Oxygen Delivery Method Room Air 12/10/24 22:51 Vital Signs Temperature 100.5 F H 12/10/24 22:51 Pulse Rate 58 L 12/10/24 22:51 Respiratory Rate 16 12/10/24 22:51 Blood Pressure 130/89 12/10/24 22:51 Pulse Oximetry 99 12/10/24 22:51 Oxygen Delivery Method Room Air 12/10/24 22:51 Temperature 98.1 F 12/10/24 23:15 Pulse Rate 54 L 12/10/24 23:31 Respiratory Rate 20 12/10/24 23:31 Blood Pressure 131/90 H 12/10/24 23:31 Pulse Oximetry 99 12/10/24 23:31 Oxygen Delivery Method Room Air 12/10/24 22:51 Medications Administered Medications: Discontinued Medications Generic Name Dose Route Start Last Admin Trade Name Freq PRN Reason Stop Dose Admin Sodium Chloride 1,000 mls @ 1,000 mls/hr 12/10/24 23:12 12/10/24 23:59 0.9 % Sodium Chloride 1000 Ml IV 12/11/24 00:11 Infused .Q1H ONE Infusion Ketorolac Tromethamine 30 mg 12/10/24 23:12 12/10/24 23:24 Ketorolac 30 Mg/Ml Inj IVP 12/10/24 23:13 30 mg ONCE ONE Administration Medical Decision Making [facility] Narrative Medical decision making narrative: Initial blood pressure here is reassuring at 130/89. Is not actually febrile. She would like treatment for her headache when offered. Ordered for normal saline and ketorolac. Otherwise will check labs for evidence of HELLP syndrome per concern. I did discuss this case with OB on-call. Monitored over time in the emergency department. Stable blood pressure. Labs reassuring. No evidence of HELLP syndrome On reassessment is unchanged to a little improved. See patient discharge plan for further discussion Yes. I would continue to check your blood pressures daily after a period of rest over this next week. If elevated, check again a little later in the day. The seen for marked increase in headache, visual changes, new weakness, shortness of breath. Continue to stay well-hydrated. Best wishes with this new baby. Medical Records Medical records reviewed: Yes I reviewed the patient's medical records Lab Data Lab results reviewed: Yes I reviewed the patient's lab results Labs: Lab Results 12/10/24 12/10/24 12/10/24 Range/Units 23:00 23:20 23:20 WBC 7.29 (4.50-11.00) K/uL RBC 4.30 (4.00-5.20) m/uL Hgb 12.3 (12.0-16.0) gm/dL Hct 37.0 (33.0-51.0) % MCV 86 (80-100) fL MCH 29 (26-34) pg MCHC 33 (32-36) gm/dL RDW Coeff of Elizabet 12.4 (11.5-15.5) % Plt Count 248 (140-440) K/uL Neut % (Auto) 52.7 (42.0-72.0) % Lymph % (Auto) 37.7 (20-44) % Routt % (Auto) 7.7 (0.0-11.0) % Eos % (Auto) 1.5 (0.0-7.0) % Baso % (Auto) 0.3 (0.0-3.0) % Neut # (Auto) 3.84 (1.7-7.0) K/uL Lymph # (Auto) 2.75 (0.90-2.90) K/uL Routt # (Auto) 0.60 (0.00-0.90) K/UL Eos # (Auto) 0.11 (0.00-0.50) K/uL Baso # (Auto) 0.02 (0.00-0.30) K/uL Abs Immat Gran (auto) 0.01 (0.00-0.30) K/uL Imm/Tot Granulo (auto) 0.1 % INR Cancelled APTT Cancelled Sodium 136 (135-149) mmol/L Potassium 4.3 (3.6-5.1) mmol/L Chloride 103 (96-114) mmol/L Carbon Dioxide 23 (20-32) mmol/L Anion Gap 10 (7-15) mEq/L BUN 20 (5-24) mg/dL Creatinine 0.6 0.6 (0.5-1.5) mg/dL Estimated Creat Clear 114.09 Estimated GFR ml/min Glucose (60-115) mg/dL Calcium (8.4-10.6) mg/dL Magnesium (1.5-2.6) mg/dL Total Bilirubin (0.1-1.5) mg/dL Direct Bilirubin (0.0-0.5) mg/dL AST (12-35) U/L ALT (4-35) U/L Alkaline Phosphatase (40-150) U/L Lactate Dehydrogenase (120-246) U/L Total Protein (6.0-8.3) g/dL Albumin (3.3-5.0) g/dL Urine Color Urine Appearance Urine pH Ur Specific [place] Urine Protein Urine Glucose (UA) Urine Ketones Urine Blood Urine Nitrite Urine Bilirubin Urine Urobilinogen Ur Leukocyte Esterase Urine RBC Urine WBC Urine WBC Clumps Ur Squamous Epith Cells [place] Biurate Crystals Calcium Carbonate Cryst Calcium Phosphate Cryst Calcium Oxalate Crystal Cystine Crystals Uric Acid Crystals Triple Phos Crystals Sulfur Crystals Cholesterol Crystals Tyrosine Crystals Hippuric Acid Crystals Amorphous Sediment Other Sediment Urine Bacteria Fatty Casts Hyaline Casts Fine Granular Casts Coarse Granular Casts Waxy Casts RBC Casts WBC Casts Other Casts Urine Starch Urine Mucus Urine Trichomonas Urine Yeast SARS-CoV-2 (PCR) Negative SARS-CoV-2 (Negative) Influenza Type A (PCR) Negative PCR FLU A (Negative) Influenza Type B (PCR) Negative PCR FLU B (Negative) RSV (PCR) Negative PCR RSV (Negative) 12/10/24 12/10/24 12/10/24 Range/Units 23:20 23:20 23:25 WBC (4.50-11.00) K/uL RBC (4.00-5.20) m/uL Hgb (12.0-16.0) gm/dL Hct (33.0-51.0) % MCV (80-100) fL MCH (26-34) pg MCHC (32-36) gm/dL RDW Coeff of Elizabet (11.5-15.5) % Plt Count (140-440) K/uL Neut % (Auto) (42.0-72.0) % Lymph % (Auto) (20-44) % Routt % (Auto) (0.0-11.0) % Eos % (Auto) (0.0-7.0) % Baso % (Auto) (0.0-3.0) % Neut # (Auto) (1.7-7.0) K/uL Lymph # (Auto) (0.90-2.90) K/uL [place] # (Auto) (0.00-0.90) K/UL Eos # (Auto) (0.00-0.50) K/uL Baso # (Auto) (0.00-0.30) K/uL Abs Immat Gran (auto) (0.00-0.30) K/uL Imm/Tot Granulo (auto) % INR APTT Sodium (135-149) mmol/L Potassium (3.6-5.1) mmol/L Chloride (96-114) mmol/L Carbon Dioxide (20-32) mmol/L Anion Gap (7-15) mEq/L BUN (5-24) mg/dL Creatinine (0.5-1.5) mg/dL Estimated Creat Clear 114.09 Estimated GFR 121 121 ml/min Glucose 96 (60-115) mg/dL Calcium 9.1 (8.4-10.6) mg/dL Magnesium 2.0 (1.5-2.6) mg/dL Total Bilirubin 0.5 (0.1-1.5) mg/dL Direct Bilirubin 0.4 (0.0-0.5) mg/dL AST 30 (12-35) U/L ALT 27 (4-35) U/L Alkaline Phosphatase 106 (40-150) U/L Lactate Dehydrogenase 263 H (120-246) U/L Total Protein 7.7 (6.0-8.3) g/dL Albumin 4.4 (3.3-5.0) g/dL Urine Color Cancelled Urine Appearance Cancelled Urine pH Cancelled Ur Specific [place] Cancelled Urine Protein Cancelled Urine Glucose (UA) Cancelled Urine Ketones Cancelled Urine Blood Cancelled Urine Nitrite Cancelled Urine Bilirubin Cancelled Urine Urobilinogen Cancelled Ur Leukocyte Esterase Cancelled Urine RBC Cancelled Urine WBC Cancelled Urine WBC Clumps Cancelled Ur Squamous Epith Cells Cancelled [place] Biurate Crystals Cancelled Calcium Carbonate Cryst Cancelled Calcium Phosphate Cryst Cancelled Calcium Oxalate Crystal Cancelled Cystine Crystals Cancelled Uric Acid Crystals Cancelled Triple Phos Crystals Cancelled Sulfur Crystals Cancelled Cholesterol Crystals Cancelled Tyrosine Crystals Cancelled Hippuric Acid Crystals Cancelled Amorphous Sediment Cancelled Other Sediment Cancelled Urine Bacteria Cancelled Fatty Casts Cancelled Hyaline Casts Cancelled Fine Granular Casts Cancelled Coarse Granular Casts Cancelled Waxy Casts Cancelled RBC Casts Cancelled WBC Casts Cancelled Other Casts Cancelled Urine Starch Cancelled Urine Mucus Cancelled Urine Trichomonas Cancelled Urine Yeast Cancelled SARS-CoV-2 (PCR) (Negative) Influenza Type A (PCR) (Negative) Influenza Type B (PCR) (Negative) RSV (PCR) (Negative) Discharge Plan Discharge Clinical Impression: Elevated blood pressure reading, Headache Patient Disposition: Home, Self-Care Condition: Improved Additional Instructions: Yes. I would continue to check your blood pressures daily after a period of rest over this next week. If elevated, check again a little later in the day. The seen for marked increase in headache, visual changes, new weakness, shortness of breath. Continue to stay well-hydrated. Best wishes with this new baby. Prescriptions: No Action magnesium 250 mg tablet 250 mg PO QDAY Stool Softener 50 mg capsule 50 mg PO QDAY sertraline 150 mg capsule 200 mg PO QDAY fluconazole 100 mg tablet 150 mg PO DAILY dextroamphetamine-amphetamine 20 mg tablet Patient Comments: [NO ORIGINAL SIG] (DME) Blood Pressure Cuff Misc See Rx Instructions .Route Qty: 1 0RF Rx Instructions: As directed Follow Up/Referrals: Kymberly Mustafa MD [Primary Care Provider] - Stand Alone Forms: [facility] Info Instructions
[2024-12-10 23:15] VITALS: BP 134/93; PULSE 55; TEMP 36.7
[2024-12-10 23:16] VITALS: BP 134/93; PULSE 58; RESP 20; O2SAT 97
[2024-12-10] MEDS: 0.9 % SODIUM CHLORIDE 1000 ml 1,000 ML IV (23:24)
[2024-12-10] MEDS: KETOROLAC 30 MG/ML inj IVP (23:24)
--- OUTSIDE RECORDS SUMMARY | 2024-12-10 23:29 | XMS_ITS | Encounter Summary ---
Author Organization [facility] Address [address] [place] [address] Care Team Providers Care Jewelry Casting Model Maker Name Role Phone Unavailable Primary Care Provider Unavailabl e Encounter Details Date Type Department Care Team (Late st Contact Info) Description 10/27/2024 Orders Only Division of Nephrology and Hypertension in [place], [place] [address] [place] [id number] External, Ordering ProviderBertrand Social History Tobacco Use [...] OUTSIDE LAB TESTS Routine 10/27/2024 6:30 AM WASTE/MATERIALS EXCHANGE SPECIALIST documented in this encounter Results * EXT Outside Lab Tests (10/27/2024 6:30 AM WASTE/MATERIALS EXCHANGE SPECIALIST) EXT Miscellaneous See scanned report [facility] 10/27/2024 6:30 AM WASTE/MATERIALS EXCHANGE SPECIALIST Narrative [facility] - 10/27/2024 12:36 PM WASTE/MATERIALS EXCHANGE SPECIALIST External results verified in Extract by Michelle Jolly on 10/27/2024 at 12:35 PM. us Ordering Provider Santos Thurston LAB BLOOD NON AD D-ON Final Result [facility] [address] [place] [id number] [phone] documented in this encounter Visit Diagnoses Not on filedocumented in this encounter
--- OUTSIDE RECORDS SUMMARY | 2024-12-10 23:29 | XMS_ITS | Clinical Summary ---
Author Organization [place] Address [facility] [place] [address] Care Team Providers Care Warehouse Associate Name Role Phone Kymberly Mustafa MD Primary [...] RSV VACCINE (No Doses Required) Completed Insurance [facility] Care Teams Warehouse Associate Relationship Specialty Start Date End Date Kymberly Mustafa MD [facility] [address] [address] (work) PCP - General Family Medicine 05/22/24
--- OUTSIDE RECORDS SUMMARY | 2024-12-10 23:29 | XMS_ITS | Encounter Summary ---
Author Organization [facility] Address [address] [place] [address] Care Team Providers Care Marble Chip Terrazzo Worker Name Role Phone Unavailable Primary Care Provider Unavailabl e Reason for Visit * Appointment Request (Routine) - Closed Specialty Diagnoses / Procedures Referred By Contac t Referred To Contact Nephrology and Hypertension Darcy Whipple M.D., Ph.D. [address] [place] [phone] Phone: tel: fax: Referral ID Status Reason Start Date Expiration Date Visits Re quested Visits Authorized [id number] Closed 10/24/2024 10/24/2025 1 1 Encounter Details Date Type Department Care Team (Latest Contact Info) Description 11/04/2024 10:30 AM BILINGUAL MIDDLE SCHOOL TEACHER Virtual Visit Division of Nephrology and Hypertension in [place], [place] [address] [place] [phone] Darcy Whipple M.D., Ph.D. [address] [place] [phone] Proteinuria (Primary Dx) Social History Tobacco Use [...] of History of HELLP Proteinuria Phone visit [facility] Visit Location: [facility] HISTORY OF PRESENT ILLNESS Tarun Tee is [...] on her proteinuria. Idalia Núñez M.D., Ph.D. NGUAL MIDDLE SCHOOL TEACHER documented in this encounter Plan of Treatment Not on file documented as of this encounter Visit Diagnoses Diagnosis Proteinuria- Primary documented in this encounter
--- OUTSIDE RECORDS SUMMARY | 2024-12-10 23:29 | XMS_ITS | Clinical Summary ---
Author Organization [facility] Address [address] [place] [address] Care Team Providers Care Manufacturing Plant Manager Name Role Phone Siri Gaines DO Primary Care Provider [phone] Source Comments You are receiving this document as you are listed as the primary care provider,follow-up provider, or the patient has been referred to you for consultation.This is in compliance with the Medicare and[facility] Hospital[facility] EHR Incentive Program,which states Providers who transition their patient to another setting of careor provider of care or refers their patient to another provider of care shouldprovide summary care record for each transition of care or referral. [facility] Allerg[facility] No known active allergies Medications Docusate [...] 07/31/16 To be removed by 07/31/16 Lot# [id number] Varicella 07/17/2007 07/29/2014 Overview (06/13/2017): LW Onset: [id number] ; Varicella Zoster Other acne 07/13/2007 07/29/2014 Overview (06/13/2017): Acne Vulgaris Immunizations Immunization Administration Dates Next Due 4vHPV (Gardasil) 01/29/2008,09/23/2007, 7 9vHPV (Gardasil 9) 01/29/2008,09/21/2007, 007 DTP 10/04/1994, 2,03/31/1991,1990,1990 Fluzone Qiv Multidose Vial 0 .25 (6-35 Mos) 07/28/2021,07/17/2019,07/18/2018,2016 HepA Adult (19+ yrs) 11/23/2010,05/11/2010 HepB Ped/Adol (0-18 yrs) 08/27/2003,04/02/2003,0 01/29/2003 Hib (ActHIB) 01/14/1992, 1,01/28/1991,1990 Influenza IIV4 (Quadrivalent ) 0.5mL (03272) 09/06/2016 MCV4 (Menactra) 05/11/2010 MMR 04/02/2003,01/14/1992 Pfizer [...] reported Respiratory Rate 16 10/01/2009 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 04/02/2019 2:13 PM CDT [facility] Pap Interpretation Atypical squamous cells of undetermined significance (ASC-US).(A) 04/02/2019 2:13 PM CDT [facility] Gross Description The specimen is received in SurePath fixative and properly labeled. 1 Pap-stained SurePath slide is prepared. 04/02/2019 2:13 PM CDT [facility] Pap Disclaimer The Pap test is a screening test designed to aid in the detection of cervical cancer and its precursor lesions. It is not a diagnostic procedure and should not be used as the sole means of detecting cervical cancer. Both false-positive and false-negative reports may occur. 04/02/2019 2:13 PM CDT [facility] Embedded Images 9 2:13 PM CDT [facility] Other Specimen Type ENTIRE ENDOCERVIX / Unknown 03/31/2019 1:05 PM CDT 03/31/2019 3:26 PM CDT Comment:LMP: No LMP recorded . Siri Gaines DO LAB PATHOLOGY Final Result [facility] [address] [place] [address], [facility] from Last 3 Months or Most Recently Relevant to Health Maintenance Insurance [address] [facility] [address] [facility] [id number] [place] [address] Care Teams Manufacturing Plant Manager Relationship Specialty Start Date End Date Siri Gaines DO [address] [place] [address] [facility] - General 07/27/14
--- OUTSIDE RECORDS SUMMARY | 2024-12-10 23:29 | XMS_ITS | Clinical Summary ---
Author Organization [facility] Address [address] [place] [id number] Care Team Providers Care Java Architect Name Role Phone Unavailable Primary Care Provider Unavailabl e Source Comments Patient records contain information from all sites at [facility]. For routine questions regarding patient records, call [phone] during business hours, M-F 8:00 AM - 5:00 PM Central Time. Record requests for emergency care only can be directed to [phone] at any time.[facility] Encounters Date Type Department Care Team Description 11/04/2024 10:30 AM FILM TOUCH UP INSPECTOR Virtual Visit Division of Nephrology and Hypertension in [place], [place] [address] [place] [phone] Darcy Whipple M.D., Ph.D. Proteinuria (Primary Dx) 10/27/2024 Orders Only Division of Nephrology and Hypertension in [place], [place] [address] [place] [phone] External, Ordering Provider, Bertrand 10/07/2024 3:30 PM FILM TOUCH UP INSPECTOR External Outreach Division of Nephrology and Hypertension in [place], [place] [address] [place] [phone] Darcy Whipple M.D., Ph.D. Proteinuria (Primary Dx) 10/01/2024 Orders Only Division of Nephrology and Hypertension in [place], [place] [address] [place] [phone] External, Ordering ProviderBertrand 09/09/2024 8:30 AM FILM TOUCH UP INSPECTOR External Outreach Division of Nephrology and Hypertension in [place], [place] [address] [place] [phone] Darcy Whipple M.D., Ph.D. Proteinuria (Primary Dx) [...] OUTSIDE LAB TESTS Routine 10/27/2024 6:30 AM FILM TOUCH UP INSPECTOR PROTEIN/CREATININE RATIO, RANDOM, URINE Routine 10/01/2024 9:10 AM FILM TOUCH UP INSPECTOR from Last 3 Months Results * EXT Outside Lab Tests (10/27/2024 6:30 AM FILM TOUCH UP INSPECTOR) EXT Miscellaneous See scanned report [facility] 10/27/2024 6:30 AM FILM TOUCH UP INSPECTOR Narrative [facility] - 10/27/2024 12:36 PM FILM TOUCH UP INSPECTOR External results verified in Extract by Michelle Jolly on 10/27/2024 at 12:35 PM. us Ordering Provider External Bertrand LAB BLOOD NON AD D-ON Final Result Performing Organization Address [facility] Co de Phone Number [facility] [address] [place] [address], [facility] [phone] * (ABNORMAL) Protein/Creatinine Ratio, Random, Urine (10/01/2024 9:10 AM FILM TOUCH UP INSPECTOR) EXT Protein, Total, Random, U 21 mg/dL [facility] Ext Protein/Creati nine ratio, Urine 1.83(H) 0 - 0.19 Ratio [facility] EXT Creatinine, U 11.5 mg/dL [facility] 10/01/2024 9:10 AM FILM TOUCH UP INSPECTOR Narrative [facility] - 10/02/2024 11:42 AM FILM TOUCH UP INSPECTOR External results verified in Extract by Michelle Jolly on 10/02/2024 at 11:39 AM. us Ordering Provider Santos Thurston LAB URINE ORDERA BLES Final Result Performing Organization Address [facility] Co de Phone Number [facility] [address] [phone] from Last 3 Months Insurance [facility]
[2024-12-10 23:31] VITALS: BP 131/90; PULSE 54; RESP 20; O2SAT 99
[2024-12-10 23:33] LABS: Basophils Absolute Auto 0.02 K/uL (0.00-0.30); Basophils Percent Auto 0.3 % (0.0-3.0); Eosinophils Absolute Auto 0.11 K/uL (0.00-0.50); Eosinophils Percent Auto 1.5 % (0.0-7.0); Hemoglobin* 12.3 gm/dL (12.0-16.0); Immature Granulocytes Abs Auto 0.01 K/uL (0.00-0.30); Immature Granulocytes Pct Auto 0.1 %; Lymphocytes Absolute Auto 2.75 K/uL (0.90-2.90); Lymphocytes Percent Auto 37.7 % (20-44); Mean Corpuscular HGB Conc 33 gm/dL (32-36); Mean Corpuscular Hemoglobin 29 pg (26-34); Mean Corpuscular Volume 86 fL (80-100); Monocytes Percent Auto 7.7 % (0.0-11.0); Neutrophils Absolute Auto 3.84 K/uL (1.7-7.0); Neutrophils Percent Auto 52.7 % (42.0-72.0); Platelet Count* 248 K/uL (140-440); RDW Coefficient of Variation % 12.4 % (11.5-15.5); White Blood Count* 7.29 K/uL (4.50-11.00)
[2024-12-10 23:36] LABS: Slide Review Reflex No
[2024-12-10 23:46] LABS: Albumin* 4.4 g/dL (3.3-5.0); Chloride* 103 mmol/L (96-114); Sodium* 136 mmol/L (135-149)
[2024-12-10 23:46] LABS: PCR FLU A Negative PCR FLU A (Negative); PCR FLU B Negative PCR FLU B (Negative); PCR RSV Negative PCR RSV (Negative); SARS PCR* Negative SARS-CoV-2 (Negative)
[2024-12-10 23:47] LABS: Potassium* 4.3 mmol/L (3.6-5.1)
[2024-12-10 23:48] LABS: Creatinine* 0.6 mg/dL (0.5-1.5); Est. Creatinine Clearance* 114.09; Estimated Glomerular Filt Rate 121 ml/min
[2024-12-10 23:49] LABS: Alanine Aminotransferase* 27 U/L (4-35); Alkaline Phosphatase* 106 U/L (40-150); Anion Gap 10 mEq/L (7-15); Aspartate Amino Transferase* 30 U/L (12-35); Bilirubin Direct* 0.4 mg/dL (0.0-0.5); Bilirubin Total* 0.5 mg/dL (0.1-1.5); Blood Urea Nitrogen* 20 mg/dL (5-24); Calcium* 9.1 mg/dL (8.4-10.6); Carbon Dioxide* 23 mmol/L (20-32); Glucose* 96 mg/dL (60-115); Lactate Dehydrogenase* 263 U/L (120-246); Total Protein* 7.7 g/dL (6.0-8.3)
== END 2024-12-11 00:27 | disposition home or self-care (01) ==
PROVIDERS: Emergency Provider Family Medicine; PCP Family Medicine
DX: R51.9 Headache, unspecified (principal); R03.0 Elevated blood-pressure reading, without diagnosis of hypertension
CPT/HCPCS: 36415; 80048; 80076; 81001; 82565; 83615; 83735; 85025; 85610; 85730; 87631; 94761; 96374; 99284; J1885; J7030

== ENCOUNTER 2025-01-13 17:31 | Outpatient (CLI) | payer BC, SELFPAY ==
[2025-01-13 22:04] LABS: Bacterial Vaginosis* Negative (Negative); Candida glab/krus NOT DETECTED (No Detected); Candida species NOT DETECTED (No Detected); Trichomonas vaginalis NOT DETECTED (No Detected)
== END 2025-01-13 17:32 | disposition home or self-care (01) ==
LOC: NFLDREF 17:31
PROVIDERS: PCP Family Medicine; Visit Provider Registered Nurse
DX: L29.2 Pruritus vulvae (principal)
CPT/HCPCS: 81513; 87481; 87661

== ENCOUNTER 2025-04-13 10:35 | Outpatient (CLI) | payer BC, SELFPAY | END 2025-04-13 10:36 | disposition home or self-care (01) | PROVIDERS: PCP Family Medicine; Visit Provider Internal Medicine Nephrology | DX: R80.9 Proteinuria, unspecified (principal) | CPT/HCPCS: 80069; 82043; 82570; 82728; 83540; 83550; 84156; 84450; 84460; 87086 ==

== ENCOUNTER 2025-04-20 07:00 | Outpatient (CLI) | payer BC, SELFPAY | END 2025-04-20 07:01 | disposition home or self-care (01) | LOC: NFLDREF 04-21 14:10 | PROVIDERS: PCP Family Medicine; Referring Provider Family Medicine; Visit Provider Internal Medicine Nephrology | DX: R80.9 Proteinuria, unspecified (principal) | CPT/HCPCS: 82570; 84156 ==

== ENCOUNTER 2025-05-05 13:10 | Outpatient (CLI) | payer BC, SELFPAY ==
[2025-05-05 22:56] LABS: Bacterial Vaginosis* Negative (Negative); Candida glab/krus NOT DETECTED (No Detected)
== END 2025-05-05 13:11 | disposition home or self-care (01) ==
PROVIDERS: PCP Family Medicine; Visit Provider Registered Nurse
DX: N89.8 Other specified noninflammatory disorders of vagina (principal); Z11.4 Encounter for screening for human immunodeficiency virus [HIV]
CPT/HCPCS: 81513; 86703; 87481; 87661